=== PATIENT | female | born 1930 | race Caucasian/White ===

== ENCOUNTER 2016-04-19 09:40 | Outpatient (CLI) | payer MEDICARE ==
[2016-04-19 10:16] LABS: Anion Gap 13 mmol/L (10-20); BUN (Urea Nitrogen) 12 mg/dL (9.8-20.1); Calc. Creatinine Clearance 0 mL/min (70-130); Calcium 8.8 mg/dL (7.8-10.44); Carbon Dioxide 33 mmol/L (23-31); Chloride 99 mmol/L (98-107); Estimated GFR-MDRD 73
== END 2016-04-19 09:41 | disposition home or self-care (01) ==
LOC: BURLAB 09:40
PROVIDERS: ATTEND Nurse Practitioner Family
DX: I50.22 Chronic systolic (congestive) heart failure (principal)
CPT/HCPCS: 36415; 80048

== ENCOUNTER 2016-04-21 10:52 | Emergency (ER) | payer MEDICARE ==
[2016-04-21] MEDS ORDERED: cefTRIAXone\\ROCEPHIN 1 GM VIAL ONE (11:19)
[2016-04-21] MEDS ORDERED: Albuterol Sulfate 2.5 mg/3 ml Neb ONE (11:20)
[2016-04-21] MEDS ORDERED: methylPREDNISolone Sod Succ/PF 125 MG/2 ML VIAL ONE ×2 (11:20→11:28)
[2016-04-21] MEDS ORDERED: Magnesium Sulfate 2 GM/100 ML BAG ONE (11:20)
[2016-04-21 11:31] LABS: #Lymphocytes 0.8 thou/uL (1.20-3.40); #Monocytes 0.7 thou/uL (0.11-0.59); #Neutrophils 4.9 thou/uL (1.40-6.50); %Basophils 0.8 % (0.0-1.0); %Eosinophils 0.2 % (0.0-10.0); Hematocrit 39.6 % (36.0-47.0); Mean Platelet Volume 8.9 fL (7.4-10.4); Red Blood Cell (RBC) Count 5.46 mill/uL (4.20-5.40); White Blood Cell (WBC) Count 6.5 thou/uL (4.8-10.8)
[2016-04-21 11:42] LABS: ALT (SGPT) 15 U/L (0-55); AST (SGOT) 21 U/L (5-34); Alkaline Phosphatase 69 U/L (40-150); Anion Gap 17 mmol/L (10-20); BUN (Urea Nitrogen) 19 mg/dL (9.8-20.1); Bilirubin, Total 1.7 mg/dL (0.2-1.2); Calc. Creatinine Clearance 0 mL/min (70-130); Carbon Dioxide 31 mmol/L (23-31); Chloride 96 mmol/L (98-107); Estimated GFR-MDRD 63; Globulin 2.2 g/dL (2.4-3.5)
[2016-04-21 11:46] LABS: Acanthocytes SLIGHT = 1-5 cells (100X) (None Seen); Elliptocytes SLIGHT = 2-5 cells (100X) (0-1/hpf); Hypochromia SLIGHT = 6-15 cells (100X) (0-5/hpf); Microcytosis SLIGHT = 6-15 cells (100X) (0-5/hpf); Polychromasia SLIGHT = 2-3 cells (100X) (0-2/hpf)
[2016-04-21 11:48] LABS: Troponin I 0.033 ng/mL (< 0.028)
[2016-04-21] MEDS ORDERED: Sodium Chloride 0.9% 100 ML ONE (11:50)
[2016-04-21] MEDS ORDERED: Furosemide 40 MG/4 ML VIAL ONE (12:01)
--- NOTE | 2016-04-21 22:52 | RAD ---
PORTABLE CHEST: Date: 04-21-16 An AP portable film at 1114 is compared with a 08-01-14 study. FINDINGS: The left hemidiaphragm is chronically elevated and causes some compressive atelectasis of the left l ower lobe. The heart is moderately enlarged. Today, the vasculature seems more congested than it w as before. CHF is presumed. No large effusions are present, though small ones would be easily mi ssed. IMPRESSION: 1. Cardiomegaly and vascular congestion and element of congestive heart failure is thought to be pr esent. 2. Elevated left hemidiaphragm, a chronic finding. It is actually not as elevated as it was in 201 5. Code T POS: HOME
== END 2016-04-21 13:48 | disposition short-term general hospital (02) ==
LOC: BURERS 10:52
DX: I50.9 Heart failure, unspecified (principal); J44.9 Chronic obstructive pulmonary disease, unspecified; Z79.82 Long term (current) use of aspirin; Z79.899 Other long term (current) drug therapy; I11.0 Hypertensive heart disease with heart failure
CPT/HCPCS: 36415; 71010; 80053; 82553; 83880; 84484; 85025; 87040; 93005; 94640; 94760; 96361; 96365; 96367; 96375; J0696; J1940; J2930; J3475; J7050; J7611; J7620

== ENCOUNTER 2017-07-29 15:40 | Outpatient (CLI) | payer MEDICARE ==
--- NOTE | 2017-07-29 19:53 | RAD ---
LUMBAR SPINE 07/29/17 The bones are quite osteoporotic which degrades bony detail. The L5-S1 disc space is partially calcif ied. There is mild spondylolisthesis of L3 on L4 that appears to be due to facet arthritis. Some slig ht compression of T10 and T11 vertebral bodies are present. Some degree of compression is present at T6 through T9 as well, though these areas are not seen optimally. No prominent lumbar compressions ar e seen. The SI joints are difficult to evaluate. On the lateral view, there is a crescentic density anterior to the lumbar spine. This may just be a t ortuous aorta, but I cannot exclude the possibility of an aortic aneurysm. There was apparently none on a 2014 CT scan. However, I would recommend either doing a CT scan or ultrasound of this area to en sure there is no aneurysm. IMPRESSION: 1. Moderately severe osteoporosis. 2. Mild spondylolisthesis of L3 on L4. 3. Slight compressions of T6 through T11. 4. Crescentic calcification in front of the lower lumbar spine. Could be either a tortuous aorta or an aneurysm. Elective ultrasound or CT needed. POS: HOME
== END 2017-07-29 15:41 | disposition home or self-care (01) ==
LOC: BURRAD 15:40
PROVIDERS: ATTEND Family Medicine
DX: M43.16 Spondylolisthesis, lumbar region (principal); M81.0 Age-related osteoporosis without current pathological fracture; G95.20 Unspecified cord compression
CPT/HCPCS: 72100

== ENCOUNTER 2017-08-06 08:20 | Outpatient (CLI) | payer MEDICARE ==
--- NOTE | 2017-08-06 17:25 | ULT ---
ABDOMINAL AORTA ULTRASOUND: 08/06/17 Ultrasonography of the aorta was performed. The size of the aorta is normal throughout with no sign o f aneurysm. The maximal transverse diameter was 2.2 cm proximally, 1.9 cm in its mid portion, and 2.1 cm distally. The area around the bifurcation showed no aneurysm either. IMPRESSION: No acute findings or signs of aneurysm. POS: HOME
== END 2017-08-06 08:21 | disposition home or self-care (01) ==
LOC: BURULT 08:20
PROVIDERS: ATTEND Family Medicine
DX: I70.0 Atherosclerosis of aorta (principal)
CPT/HCPCS: 76775

== ENCOUNTER 2017-10-02 11:03 | Inpatient (IN) | payer MEDICARE ==
[2017-10-02] MEDS ORDERED: Milk Of Magnesia 30 ML UDCUP PO PRN (16:51)
[2017-10-02] MEDS ORDERED: Acetaminophen 500 MG TAB PO PRN (16:51)
[2017-10-02] MEDS ORDERED: Ondansetron ODT 4 MG TAB PO PRN (16:51)
[2017-10-02] MEDS: HYDROcodone/Acetaminophen 5/325 mg Tablet PO PRN (18:31)
[2017-10-02] MEDS: Famotidine 20 MG TAB PO SCH (21:09)
[2017-10-02] MEDS: Aspirin 81 mg Enteric Coated Tablet PO SCH (21:10)
[2017-10-03] MEDS: Aspirin 81 mg Enteric Coated Tablet PO SCH ×2 (09:46→20:42)
[2017-10-03] MEDS: Enoxaparin Sodium 30 MG/0.3 ML SYRINGE SC SCH (09:46)
[2017-10-03] MEDS: Famotidine 20 MG TAB PO SCH ×2 (09:46→20:41)
[2017-10-03] MEDS: Furosemide 40 MG TAB PO SCH (09:47)
[2017-10-03] MEDS: HYDROcodone/Acetaminophen 5/325 mg Tablet PO PRN (22:11)
[2017-10-04 05:31] LABS: Hemoglobin 9.2 g/dL (12.0-16.0); Platelet Count 180 thou/uL (130-400)
[2017-10-04] MEDS: Enoxaparin Sodium 30 MG/0.3 ML SYRINGE SC SCH (09:30)
[2017-10-04] MEDS: Famotidine 20 MG TAB PO SCH ×2 (09:30→20:51)
[2017-10-04] MEDS: Aspirin 81 mg Enteric Coated Tablet PO SCH ×2 (09:30→20:51)
[2017-10-04] MEDS: Furosemide 40 MG TAB PO SCH (09:30)
[2017-10-04] MEDS: Polyethylene Glycol 3350 17 GM Packet PO PRN (09:31)
[2017-10-04] MEDS: HYDROcodone/Acetaminophen 5/325 mg Tablet PO PRN (15:02)
[2017-10-05] MEDS: HYDROcodone/Acetaminophen 5/325 mg Tablet PO PRN ×2 (02:39→20:54)
[2017-10-05] MEDS: Aspirin 81 mg Enteric Coated Tablet PO SCH ×2 (08:20→20:54)
[2017-10-05] MEDS: Famotidine 20 MG TAB PO SCH ×2 (08:20→20:54)
[2017-10-05] MEDS: Furosemide 40 MG TAB PO SCH (08:20)
[2017-10-05] MEDS: Enoxaparin Sodium 30 MG/0.3 ML SYRINGE SC SCH (08:21)
[2017-10-05] MEDS ORDERED: Nitroglycerin 0.4 MG TAB (25 Tab Bottle) ONE (23:43)
[2017-10-06 05:47] LABS: Hemoglobin 9.1 g/dL (12.0-16.0); Platelet Count 210 thou/uL (130-400)
[2017-10-06] MEDS: Polyethylene Glycol 3350 17 GM Packet PO PRN (08:17)
[2017-10-06] MEDS: HYDROcodone/Acetaminophen 5/325 mg Tablet PO PRN ×2 (08:18→20:49)
[2017-10-06] MEDS: Furosemide 40 MG TAB PO SCH ×2 (08:18→20:40)
[2017-10-06] MEDS: Aspirin 81 mg Enteric Coated Tablet PO SCH ×2 (08:18→20:40)
[2017-10-06] MEDS: Enoxaparin Sodium 30 MG/0.3 ML SYRINGE SC SCH (08:18)
[2017-10-06] MEDS: Famotidine 20 MG TAB PO SCH ×2 (08:18→20:40)
[2017-10-06] MEDS: Mometasone/Formoterol 60 PUFF AER INH SCH (18:18)
[2017-10-07] MEDS: Mometasone/Formoterol 60 PUFF AER INH SCH ×2 (06:37→07:34)
[2017-10-07] MEDS: Famotidine 20 MG TAB PO SCH ×2 (08:30→20:52)
[2017-10-07] MEDS: Aspirin 81 mg Enteric Coated Tablet PO SCH ×2 (08:30→20:52)
[2017-10-07] MEDS: Furosemide 40 MG TAB PO SCH ×2 (08:30→20:52)
[2017-10-07] MEDS: HYDROcodone/Acetaminophen 5/325 mg Tablet PO PRN ×3 (08:30→20:52)
[2017-10-07] MEDS: Enoxaparin Sodium 30 MG/0.3 ML SYRINGE SC SCH (08:31)
[2017-10-07] MEDS: Polyethylene Glycol 3350 17 GM Packet PO PRN (08:36)
[2017-10-08 05:22] LABS: Hemoglobin 8.6 g/dL (12.0-16.0); Platelet Count 208 thou/uL (130-400)
[2017-10-08] MEDS: Mometasone/Formoterol 60 PUFF AER INH SCH ×2 (06:44→18:29)
[2017-10-08] MEDS: HYDROcodone/Acetaminophen 5/325 mg Tablet PO PRN ×2 (09:10→14:45)
[2017-10-08] MEDS: Famotidine 20 MG TAB PO SCH ×2 (09:11→20:58)
[2017-10-08] MEDS: Enoxaparin Sodium 30 MG/0.3 ML SYRINGE SC SCH (09:12)
[2017-10-08] MEDS: Aspirin 81 mg Enteric Coated Tablet PO SCH ×2 (09:12→20:58)
[2017-10-08] MEDS: Furosemide 40 MG TAB PO SCH ×2 (09:12→13:40)
[2017-10-08] MEDS: Polyethylene Glycol 3350 17 GM Packet PO SCH (09:13)
[2017-10-09] MEDS: Furosemide 40 MG TAB PO SCH ×2 (06:31→14:20)
[2017-10-09] MEDS: Mometasone/Formoterol 60 PUFF AER INH SCH ×2 (06:31→18:32)
[2017-10-09] MEDS: HYDROcodone/Acetaminophen 5/325 mg Tablet PO PRN ×2 (09:11→14:19)
[2017-10-09] MEDS: Famotidine 20 MG TAB PO SCH ×2 (09:13→21:32)
[2017-10-09] MEDS: Enoxaparin Sodium 30 MG/0.3 ML SYRINGE SC SCH (09:13)
[2017-10-09] MEDS: Aspirin 81 mg Enteric Coated Tablet PO SCH ×2 (09:13→21:32)
[2017-10-09] MEDS: Polyethylene Glycol 3350 17 GM Packet PO SCH (09:14)
[2017-10-10] MEDS: HYDROcodone/Acetaminophen 5/325 mg Tablet PO PRN ×3 (01:23→14:25)
[2017-10-10 05:13] LABS: Hemoglobin 8.4 g/dL (12.0-16.0); Platelet Count 214 thou/uL (130-400)
[2017-10-10] MEDS: Mometasone/Formoterol 60 PUFF AER INH SCH ×2 (06:07→17:23)
[2017-10-10] MEDS: Furosemide 40 MG TAB PO SCH ×2 (06:07→14:23)
[2017-10-10] MEDS: Polyethylene Glycol 3350 17 GM Packet PO SCH (09:26)
[2017-10-10] MEDS: Famotidine 20 MG TAB PO SCH ×2 (09:27→21:47)
[2017-10-10] MEDS: Aspirin 81 mg Enteric Coated Tablet PO SCH ×2 (09:27→21:47)
[2017-10-10] MEDS: Enoxaparin Sodium 30 MG/0.3 ML SYRINGE SC SCH (09:27)
[2017-10-11] MEDS: Furosemide 40 MG TAB PO SCH ×2 (05:50→14:26)
[2017-10-11] MEDS: Mometasone/Formoterol 60 PUFF AER INH SCH ×2 (05:50→18:21)
[2017-10-11] MEDS: Famotidine 20 MG TAB PO SCH ×2 (09:54→20:16)
[2017-10-11] MEDS: Enoxaparin Sodium 30 MG/0.3 ML SYRINGE SC SCH (09:55)
[2017-10-11] MEDS: Aspirin 81 mg Enteric Coated Tablet PO SCH ×2 (09:55→20:16)
[2017-10-11] MEDS: Polyethylene Glycol 3350 17 GM Packet PO SCH (10:01)
[2017-10-11] MEDS: HYDROcodone/Acetaminophen 5/325 mg Tablet PO PRN ×2 (10:41→20:16)
[2017-10-12] MEDS: HYDROcodone/Acetaminophen 5/325 mg Tablet PO PRN (04:05)
[2017-10-12 04:51] LABS: Hemoglobin 8.5 g/dL (12.0-16.0); Platelet Count 241 thou/uL (130-400)
[2017-10-12] MEDS: Furosemide 40 MG TAB PO SCH ×2 (06:02→14:00)
[2017-10-12] MEDS: Mometasone/Formoterol 60 PUFF AER INH SCH ×2 (06:02→20:59)
[2017-10-12] MEDS: Enoxaparin Sodium 30 MG/0.3 ML SYRINGE SC SCH (09:41)
[2017-10-12] MEDS: Famotidine 20 MG TAB PO SCH ×2 (09:41→21:01)
[2017-10-12] MEDS: Aspirin 81 mg Enteric Coated Tablet PO SCH ×2 (09:41→21:01)
[2017-10-12] MEDS: Polyethylene Glycol 3350 17 GM Packet PO SCH (09:41)
[2017-10-13] MEDS: HYDROcodone/Acetaminophen 5/325 mg Tablet PO PRN ×3 (02:49→14:51)
[2017-10-13] MEDS: Mometasone/Formoterol 60 PUFF AER INH SCH ×2 (05:37→20:19)
[2017-10-13] MEDS: Furosemide 40 MG TAB PO SCH ×2 (05:37→14:51)
[2017-10-13] MEDS: Enoxaparin Sodium 30 MG/0.3 ML SYRINGE SC SCH (09:03)
[2017-10-13] MEDS: Polyethylene Glycol 3350 17 GM Packet PO SCH (09:05)
[2017-10-13] MEDS: Famotidine 20 MG TAB PO SCH ×2 (09:06→20:17)
[2017-10-13] MEDS: Aspirin 81 mg Enteric Coated Tablet PO SCH ×2 (09:19→20:17)
[2017-10-14 05:16] LABS: Hemoglobin 8.2 g/dL (12.0-16.0); Platelet Count 191 thou/uL (130-400)
[2017-10-14] MEDS: Furosemide 40 MG TAB PO SCH ×2 (06:13→13:23)
[2017-10-14] MEDS: Mometasone/Formoterol 60 PUFF AER INH SCH ×2 (06:14→17:51)
[2017-10-14] MEDS: Famotidine 20 MG TAB PO SCH ×2 (08:06→20:10)
[2017-10-14] MEDS: Aspirin 81 mg Enteric Coated Tablet PO SCH ×2 (08:06→20:11)
[2017-10-14] MEDS: Polyethylene Glycol 3350 17 GM Packet PO SCH (08:06)
[2017-10-14] MEDS: Enoxaparin Sodium 30 MG/0.3 ML SYRINGE SC SCH (08:09)
[2017-10-14] MEDS: HYDROcodone/Acetaminophen 5/325 mg Tablet PO PRN ×3 (09:05→20:11)
[2017-10-15] MEDS: Furosemide 40 MG TAB PO SCH ×2 (05:46→13:59)
[2017-10-15] MEDS: Mometasone/Formoterol 60 PUFF AER INH SCH ×2 (05:46→18:38)
[2017-10-15] MEDS ORDERED: Cyanocobalamin 1000 MCG/ML VIAL SC SCH (09:00)
[2017-10-15] MEDS: Famotidine 20 MG TAB PO SCH ×2 (09:06→20:33)
[2017-10-15] MEDS: Aspirin 81 mg Enteric Coated Tablet PO SCH ×2 (09:07→20:32)
[2017-10-15] MEDS: HYDROcodone/Acetaminophen 5/325 mg Tablet PO PRN (09:09)
[2017-10-15] MEDS: Polyethylene Glycol 3350 17 GM Packet PO SCH (09:12)
[2017-10-15] MEDS: Enoxaparin Sodium 30 MG/0.3 ML SYRINGE SC SCH (09:19)
[2017-10-16 05:35] LABS: Platelet Count 219 thou/uL (130-400)
[2017-10-16 05:45] LABS: Calc. Creatinine Clearance 114 mL/min (70-130); Estimated GFR-MDRD Greater than 90
[2017-10-16] MEDS: Mometasone/Formoterol 60 PUFF AER INH SCH ×2 (06:12→18:50)
[2017-10-16] MEDS: Furosemide 40 MG TAB PO SCH ×2 (06:12→13:54)
[2017-10-16] MEDS: Aspirin 81 mg Enteric Coated Tablet PO SCH ×2 (08:46→20:57)
[2017-10-16] MEDS: Enoxaparin Sodium 30 MG/0.3 ML SYRINGE SC SCH (08:46)
[2017-10-16] MEDS: Polyethylene Glycol 3350 17 GM Packet PO SCH (08:47)
[2017-10-16] MEDS: Famotidine 20 MG TAB PO SCH ×2 (08:47→20:57)
[2017-10-17] MEDS: Mometasone/Formoterol 60 PUFF AER INH SCH ×2 (06:18→17:08)
[2017-10-17] MEDS: Furosemide 40 MG TAB PO SCH ×2 (06:18→14:29)
[2017-10-17] MEDS: Enoxaparin Sodium 30 MG/0.3 ML SYRINGE SC SCH (08:27)
[2017-10-17] MEDS: Famotidine 20 MG TAB PO SCH ×2 (08:28→20:39)
[2017-10-17] MEDS: Aspirin 81 mg Enteric Coated Tablet PO SCH ×2 (08:28→20:39)
[2017-10-17] MEDS: HYDROcodone/Acetaminophen 5/325 mg Tablet PO PRN (08:29)
[2017-10-17] MEDS: Polyethylene Glycol 3350 17 GM Packet PO SCH (08:31)
[2017-10-18] MEDS: HYDROcodone/Acetaminophen 5/325 mg Tablet PO PRN (01:41)
[2017-10-18 05:39] LABS: Platelet Count 205 thou/uL (130-400)
[2017-10-18 05:48] LABS: Calc. Creatinine Clearance 116 mL/min (70-130); Estimated GFR-MDRD Greater than 90
[2017-10-18] MEDS: Mometasone/Formoterol 60 PUFF AER INH SCH ×2 (06:39→18:45)
[2017-10-18] MEDS: Furosemide 40 MG TAB PO SCH ×2 (06:39→14:00)
[2017-10-18] MEDS: Enoxaparin Sodium 30 MG/0.3 ML SYRINGE SC SCH (08:36)
[2017-10-18] MEDS: Aspirin 81 mg Enteric Coated Tablet PO SCH ×2 (08:36→21:04)
[2017-10-18] MEDS: Famotidine 20 MG TAB PO SCH ×2 (08:36→21:04)
[2017-10-18] MEDS: Polyethylene Glycol 3350 17 GM Packet PO SCH (08:37)
[2017-10-19] MEDS: HYDROcodone/Acetaminophen 5/325 mg Tablet PO PRN (03:08)
[2017-10-19] MEDS: Furosemide 40 MG TAB PO SCH ×2 (06:21→14:47)
[2017-10-19] MEDS: Mometasone/Formoterol 60 PUFF AER INH SCH ×2 (06:21→18:28)
[2017-10-19] MEDS: Famotidine 20 MG TAB PO SCH ×2 (09:09→20:56)
[2017-10-19] MEDS: Aspirin 81 mg Enteric Coated Tablet PO SCH ×2 (09:09→20:56)
[2017-10-19] MEDS: Enoxaparin Sodium 30 MG/0.3 ML SYRINGE SC SCH (09:10)
[2017-10-19] MEDS: Polyethylene Glycol 3350 17 GM Packet PO SCH (09:15)
[2017-10-20 05:30] LABS: Hemoglobin 8.6 g/dL (12.0-16.0); Platelet Count 214 thou/uL (130-400)
[2017-10-20] MEDS: Furosemide 40 MG TAB PO SCH ×2 (05:35→14:12)
[2017-10-20] MEDS: Mometasone/Formoterol 60 PUFF AER INH SCH ×2 (05:36→18:21)
[2017-10-20 05:37] LABS: Calc. Creatinine Clearance 116 mL/min (70-130); Estimated GFR-MDRD Greater than 90
[2017-10-20] MEDS: Polyethylene Glycol 3350 17 GM Packet PO SCH (09:17)
[2017-10-20] MEDS: Aspirin 81 mg Enteric Coated Tablet PO SCH ×2 (09:18→21:01)
[2017-10-20] MEDS: Famotidine 20 MG TAB PO SCH ×2 (09:18→21:01)
[2017-10-20] MEDS: Enoxaparin Sodium 30 MG/0.3 ML SYRINGE SC SCH (09:19)
[2017-10-20] MEDS: HYDROcodone/Acetaminophen 5/325 mg Tablet PO PRN ×2 (13:14→17:28)
[2017-10-21] MEDS: HYDROcodone/Acetaminophen 5/325 mg Tablet PO PRN ×2 (00:38→08:29)
[2017-10-21] MEDS: Mometasone/Formoterol 60 PUFF AER INH SCH ×2 (06:26→18:25)
[2017-10-21] MEDS: Furosemide 40 MG TAB PO SCH ×2 (06:30→14:49)
[2017-10-21] MEDS: Famotidine 20 MG TAB PO SCH ×2 (08:30→20:21)
[2017-10-21] MEDS: Aspirin 81 mg Enteric Coated Tablet PO SCH ×2 (08:30→20:22)
[2017-10-21] MEDS: Polyethylene Glycol 3350 17 GM Packet PO SCH (08:32)
[2017-10-21] MEDS: Enoxaparin Sodium 40 MG/0.4 ML SYRINGE SC SCH (08:40)
[2017-10-22] MEDS: HYDROcodone/Acetaminophen 5/325 mg Tablet PO PRN ×2 (02:26→14:06)
[2017-10-22 05:25] LABS: Hemoglobin 8.5 g/dL (12.0-16.0); Platelet Count 212 thou/uL (130-400)
[2017-10-22 05:33] LABS: Calc. Creatinine Clearance 115 mL/min (70-130); Estimated GFR-MDRD Greater than 90
[2017-10-22] MEDS: Mometasone/Formoterol 60 PUFF AER INH SCH ×2 (06:27→18:21)
[2017-10-22] MEDS: Furosemide 40 MG TAB PO SCH ×2 (06:27→13:33)
[2017-10-22 06:41] VITALS: BMI 36.7
[2017-10-22] MEDS: Enoxaparin Sodium 40 MG/0.4 ML SYRINGE SC SCH (09:58)
[2017-10-22] MEDS: Aspirin 81 mg Enteric Coated Tablet PO SCH ×2 (09:58→20:41)
[2017-10-22] MEDS: Famotidine 20 MG TAB PO SCH ×2 (09:58→20:40)
[2017-10-22] MEDS: Polyethylene Glycol 3350 17 GM Packet PO SCH (09:59)
--- NOTE | 2017-10-22 22:13 | ULT ---
RIGHT LOWER EXTREMITY VENOUS ULTRASOUND: 10/22/17 Ultrasonography of the deep veins of the right lower extremity was performed using color doppler imag ing. Documentary images and worksheets were provided and reviewed. All deep veins were freely stella sible from groin to ankle. No echogenic clot was seen in the vessels. There was normal doppler respon se to augmentation maneuvers. Thus, there is no evidence of DVT. There is a complex cystic area in the popliteal fossa measuring about 1.8 x 1.2 x 1.5 cm. It is mostl y cystic but has debris internally. 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 IMPRESSION: 1. No evidence of DVT. 2. 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 POS: HOME
[2017-10-23] MEDS: Furosemide 40 MG TAB PO SCH ×2 (05:58→13:59)
[2017-10-23] MEDS: Mometasone/Formoterol 60 PUFF AER INH SCH ×2 (05:59→18:44)
[2017-10-23] MEDS: HYDROcodone/Acetaminophen 5/325 mg Tablet PO PRN (08:54)
[2017-10-23] MEDS: Enoxaparin Sodium 40 MG/0.4 ML SYRINGE SC SCH (08:55)
[2017-10-23] MEDS: Famotidine 20 MG TAB PO SCH ×2 (08:56→19:55)
[2017-10-23] MEDS: Aspirin 81 mg Enteric Coated Tablet PO SCH ×2 (08:56→19:55)
[2017-10-23] MEDS: Polyethylene Glycol 3350 17 GM Packet PO SCH (08:57)
[2017-10-24 05:24] LABS: Hemoglobin 8.5 g/dL (12.0-16.0); Platelet Count 197 thou/uL (130-400)
[2017-10-24 05:34] LABS: Calc. Creatinine Clearance 115 mL/min (70-130); Estimated GFR-MDRD Greater than 90
[2017-10-24] MEDS: Mometasone/Formoterol 60 PUFF AER INH SCH (05:55)
[2017-10-24] MEDS: Furosemide 40 MG TAB PO SCH (05:55)
[2017-10-24 06:25] VITALS: BP 139/62; TEMP 98
[2017-10-24] MEDS: Aspirin 81 mg Enteric Coated Tablet PO SCH (09:21)
[2017-10-24] MEDS: Enoxaparin Sodium 40 MG/0.4 ML SYRINGE SC SCH (09:21)
[2017-10-24] MEDS: Famotidine 20 MG TAB PO SCH (09:21)
[2017-10-24] MEDS: Polyethylene Glycol 3350 17 GM Packet PO SCH (09:22)
[2017-10-24] MEDS: HYDROcodone/Acetaminophen 5/325 mg Tablet PO PRN (09:23)
--- NOTE | 2017-10-24 12:52 | DIS ---
DATE OF ADMISSION: 10/02/2017 DATE OF DISCHARGE: 10/24/2017 ADMISSION DIAGNOSES: 1. Status post right intertrochanteric hip fracture. 2. Hypertension. 3. Chronic lower extremity edema. 4. Chronic obstructive pulmonary disease. 5. Obstructive sleep apnea on CPAP. PROCEDURES: Venous Doppler of the right lower extremity was negative for DVT. HOSPITAL COURSE: An 86-year-old female who presented as a skilled patient to participate with physical therapy and occupational therapy, status post admission at [facility] in [place] where she was treated status post fall for a right intertrochanteric hip fracture. On 2017 she had a right IM nailing with a long TFNA via Dr. Decker performed. The patient has a history of significant osteoarthritis of bilateral knees, and this accompanied with physical deconditioning required her transition to our facility for further therapy. She typically lives at home with her and is ambulatory with the assistance of a walker. The patient presented with notable swelling to the lower extremities, right greater than left, although she does have a history of edema to her lower extremities. Her surgical wound sites were weeping serosanguineous fluid which required frequent dressing changes. Accordingly, her Lasix was increased from 20 mg p.o. daily to 40 mg p.o. daily. During her admission the patient was ruled out for DVT of the right lower extremity secondary to her lower extremity swelling. Gradually her drainage from surgical sites improved and dissipated. She had follow up with Dr. Decker on 10/20/2017 with no further changes and advised further follow up 3 months from that time period. She has progressed steadily, but slowly with PT/OT to achieve the goals set forth to enable her to return to her home setting. She has elected to proceed with further physical therapy via [facility]. At this time, the patient is in her usual state of health and amenable to return home with further care via home health as stated. DISPOSITION: The patient will discharge home where she lives with her . She may follow up with myself in the clinic next week and receive further physical therapy, occupational therapy via [facility]. DISCHARGE MEDICATIONS: Aspirin 81 mg p.o. b.i.d., cyanocobalamin 1000 mcg subcutaneous q. 14 days, Lasix 20 mg p.o. daily, DuoNeb q.6 hours p.r.n., Tylenol 500 mg p.o. q.6 hours p.r.n. MTDD
== END 2017-10-24 11:57 | disposition home or self-care (01) | DRG 561 ==
LOC: BURMED 13:41
PROVIDERS: ADMIT Family Medicine; ATTEND Family Medicine
DX: S72.141D Displaced intertrochanteric fracture of right femur, subsequent encounter for closed fracture with routine healing (principal); I10 Essential (primary) hypertension; R60.0 Localized edema; J44.9 Chronic obstructive pulmonary disease, unspecified; G47.33 Obstructive sleep apnea (adult) (pediatric); M17.0 Bilateral primary osteoarthritis of knee
CPT/HCPCS: 36415; 82565; 85014; 85018; 85049; 94664; G8987-GO-CL; G8988-GO-CI; J1650; J3420

== ENCOUNTER 2018-02-10 09:35 | Inpatient (IN) | payer MEDICARE ==
[2018-02-10 10:53] LABS: Clarity Slightly Cloudy (Clear); Leukocyte Negative (Negative); Specific Gravity, Urine 1.015 (1.005-1.030); pH, Urine 5.5 (5.0-9.0)
[2018-02-10 10:54] LABS: Bilirubin Small (Negative); Blood, Urine Trace (Negative); Glucose, Urine (Dipstick) Negative (Negative); Nitrite Negative (Negative); Protein, Urine (Dipstick) Trace mg/dL (Neg-Trace)
[2018-02-10 10:55] LABS: Bacteria/HPF 1+ HPF (None Seen); RBC/HPF 0-3 HPF (0-3); Squamous Epithelial 0-3 HPF (0-3); WBC/HPF 0-3 HPF (0-3)
[2018-02-10 11:02] LABS: ALT (SGPT) 13 U/L (8-55); AST (SGOT) 19 U/L (5-34); Albumin 3.8 g/dL (3.4-4.8); Alkaline Phosphatase 91 U/L (40-150); Anion Gap 16 mmol/L (10-20); BUN (Urea Nitrogen) 13 mg/dL (9.8-20.1); Bilirubin, Total 2.3 mg/dL (0.2-1.2); Calc. Creatinine Clearance 94 mL/min (70-130); Calcium 9.4 mg/dL (7.8-10.44); Carbon Dioxide 29 mmol/L (23-31); Chloride 97 mmol/L (98-107); Estimated GFR-MDRD 84; Globulin 2.3 g/dL (2.4-3.5); Glucose 107 mg/dL (83-110); Potassium 3.8 mmol/L (3.5-5.1); Protein, Total 6.1 g/dL (6.0-8.3); Sodium 138 mmol/L (136-145)
[2018-02-10 11:43] LABS: #Basophils 0.1 thou/uL (0.0-0.2); #Monocytes 0.9 thou/uL (0.11-0.59); #Neutrophils 9.6 thou/uL (1.40-6.50); %Basophils 0.6 % (0.0-1.0); %Eosinophils 0.2 % (0.0-10.0); %Lymphocytes 8.6 % (21.0-51.0); %Monocytes 8.1 % (0.0-10.0); %Neutrophils 82.5 % (42.0-75.0); Hemoglobin 10.1 g/dL (12.0-16.0); Mean Corpuscular HGB CONC 31.6 g/dL (32.0-36.0); Mean Corpuscular Hemoglobin 21.7 pg (27.0-31.0); Mean Corpuscular Volume 68.5 fL (78.0-98.0); Mean Platelet Volume 8.3 fL (7.4-10.4); Platelet Count 197 thou/uL (130-400); RBC Distribution Width 18.6 % (11.5-14.5); Red Blood Cell (RBC) Count 4.68 mill/uL (4.20-5.40); White Blood Cell (WBC) Count 11.6 thou/uL (4.8-10.8)
[2018-02-10 11:54] LABS: Anisocytosis SLIGHT = 6-15 cells (100X) (0-5/hpf); MDiff Complete? YES; Microcytosis SLIGHT = 6-15 cells (100X) (0-5/hpf); PLT Morphology Comment Appears Adequate
[2018-02-10] MEDS ORDERED: Acetaminophen/Codeine 30-300mg Tablet PO PRN (13:07)
[2018-02-10] MEDS ORDERED: Cyanocobalamin 1000 MCG/ML VIAL SC SCH (13:15)
--- NOTE | 2018-02-10 13:59 | RAD ---
CHEST TWO VIEWS: 02/10/2018 COMPARISON: 09/28/2017 I also reviewed an older chest x-ray from 04/24/[address] angio chest from 04/23/2016. FINDINGS: Moderate cardiomegaly and elevation of the left hemidiaphragm are chronic and similar to before. If anything, the left lung is slightly better aerated today than it was in August. There is a new 1 cm no dular density in the left upper lobe that is not visible on the prior chest x-ray, nor on the 2017 CT . This bears further followup, probably with an elective CT. There is a streaky infiltrate in the r ight base that is new since August. The vessels do not show any dramatic congestion, nor is there pulm onary edema. No large effusions are seen. IMPRESSION: 1. Streaky right basilar infiltrate. 2. A 1 cm nodular density, left upper lobe, a new finding. 3. Moderate cardiomegaly, stable. No clear signs of congestive heart failure. 4. Chronic elevation of the left hemidiaphragm. POS: HOME
[2018-02-10] MEDS ORDERED: cefTRIAXone\\ROCEPHIN 1 GM in Sodium Chloride 0.9% 100 ML IVPB SCH (15:00)
[2018-02-10] MEDS ORDERED: Furosemide 20 MG TAB PO SCH (16:00)
[2018-02-10] MEDS ORDERED: Aspirin 81 mg Enteric Coated Tablet PO SCH (16:00)
[2018-02-10] MEDS: Acetaminophen 500 MG TAB PO PRN (17:17)
[2018-02-10] MEDS: Azithromycin 500 MG in Sodium Chloride 0.9% 250 ML 250 ML IVPB SCH (17:52)
[2018-02-10] MEDS ORDERED: Sodium Chloride 0.9% 10 ML ONE (19:09)
[2018-02-10] MEDS: Aspirin 81 mg Enteric Coated Tablet PO SCH (20:14)
--- NOTE | 2018-02-11 00:58 | HP ---
CHIEF COMPLAINT: Dyspnea with hypoxia. HISTORY OF PRESENT ILLNESS: 87-year-old female presented to the clinical setting this morning with complaints of progressively worsening cough, which has been intermittently productive of yellow phlegm, more problematic at night and accompanied by shortness of breath. She developed fever and chills 1 to 2 days ago. She did get a flu shot in December of this year. At home, she had taken Tylenol prior to her presentation in the clinic. In the clinic, she was noted to be febrile with a temperature of 100 degrees and mildly tachypneic and hypoxic with a pulse ox of 88%. She was provided a DuoNeb treatment with only mild improvement at best with oxygen rising in between 89% and 90%. Flu swab was obtained and was negative. The patient is followed by Pulmonology, Dr. Barlow, as she has a history of restrictive and obstructive lung disease, although no h/o smoking. Due to the patient's history, clinical presentation and lack of improvement in the clinical setting, she was directly admitted to [facility] for suspected community-acquired pneumonia, dyspnea and hypoxia with the need for further workup and treatment. Upon admission to the floor, chest x-ray was obtained along with blood work and cultures. Her chest x-ray reveals streaky right basilar infiltrates along with a 1 cm nodular density to the left upper lobe, which is a new finding, moderate cardiomegaly which is stable with no clear signs of congestive heart failure and chronic elevation to the left hemidiaphragm. Her lab work revealed a leukocytosis with left shift. She was started on IV Rocephin empirically after her labs were obtained and has been provided supplemental oxygen. Upon reevaluation after clinic, the patient is resting comfortably and felt to be breathing slightly better. Reports her intake and output are at baseline. She is in no respiratory distress. She has good insight into her reason for admission. I had discussion with the patient and her daughter by phone as well in regard to the chest x-ray finding of a new pulmonary nodule and they are both in agreement with pursuance of the CT scan. PAST MEDICAL HISTORY: Diastolic congestive heart failure. Most recent echocardiogram done on 04/22/2016 shows normal left ejection fraction of 65% to 70%, left ventricle was hyperdynamic, right atrial enlargement, right ventricle was mildly dilated, mild tricuspid regurgitation, mild mitral regurgitation, pulmonary hypertension with estimated PA systolic pressure of 65 mmHg. Restrictive and obstructive lung disease, hypertension, osteoarthritis, vitamin B12 deficiency. PAST SURGICAL HISTORY: Cholecystectomy, appendectomy, hysterectomy, right hip surgery. SOCIAL HISTORY: The patient is a nonsmoker with no ETOH or illicit drug use. ALLERGIES: INCLUDE CIPRO AND FELDENE. FAMILY HISTORY: Noncontributory. CURRENT MEDICATIONS: Include: 1. Tylenol with Codeine q.8 hours p.r.n. 2. Aspirin 81 mg p.o. daily. 3. Cyanocobalamin 1000 mcg subcutaneously twice a month. 4. Furosemide 40 mg p.o. daily. 5. Supplemental oxygen at night. REVIEW OF SYSTEMS: GENERAL: The patient reports fever and chills. EAR, NOSE AND THROAT: Denies sore throat. She has had nasal drainage and congestion. CARDIOVASCULAR: Denies chest pain or palpitations. RESPIRATORY: Complains of shortness of breath and cough. GASTROINTESTINAL: Denies abdominal pain, nausea, vomiting, diarrhea, or constipation. GENITOURINARY: Denies dysuria. MUSCULOSKELETAL: Complains of chronic joint pain. DERMATOLOGY: Denies rash. NEUROLOGIC: Denies headache. LABORATORY DATA: Urinalysis shows trace blood with 1+ bacteria; negative for ketones, glucose, nitrites, or leukocyte esterase. White blood cell count is 11.6 with a left shift, H and H are 10.1 and 32.1, platelets are 197. Sodium is 138, potassium 3.8, BUN is 13, creatinine 0.67 with a GFR of 84, glucose 107. AST and ALT are within normal limits. BNP is 416. Chest x-ray 02/10/2018; as per HPI, streaky right basilar infiltrate, 1 cm nodular density to the left upper lobe which is a new finding. Moderate cardiomegaly, stable with no clear signs of congestive heart failure. Chronic elevation of the left hemidiaphragm. PHYSICAL EXAMINATION: VITAL SIGNS: Temperature is 100.7, pulse is 92, respiratory rate is 24, oxygen is 93% on 2 L, blood pressure is 133/60. GENERAL: The patient is alert and oriented, in on acute distress. EYES: Pupils are equal, round and reactive. Sclerae clear. Extraocular muscles are intact bilaterally. She does wear glasses. NOSE: There is nasal congestion. THROAT: Moist mucous membranes. No erythema. NECK: Supple with no lymphadenopathy. No meningeal signs. CARDIOVASCULAR: Regular rate and rhythm. Normal S1 and S2. RESPIRATORY: Mild tachypnea with scattered wheezes. No respiratory distress. ABDOMEN: Soft, nontender. No rebound or guarding. EXTREMITIES: She has chronic nonpitting edema. No clubbing or cyanosis. SKIN: She has a herpetic rash to the area between the upper lip and nose. NEUROLOGIC: Nonfocal. Cranial nerves 2 through 12 are grossly intact. ASSESSMENT AND PLAN: 1. Community-acquired pneumonia, right lower lobe. The patient has been started on Rocephin empirically; will add IV Azithromycin to this as well. Blood and urine culture are pending. We will be repeating her CBC in the morning. 2. Pulmonary nodule. This is a new finding per chest x-ray. The patient and daughter of the patient are in agreement with pursuance of a CT scan to further investigate this. This has been ordered for tomorrow morning. 3. Hypoxia. We will resume the patient on supplemental oxygen and keep O2 sats greater than 92%. The patient does have home oxygen for p.r.n. use and does wear this nightly. 4. Restrictive/obstructive lung disease. The patient is followed by Pulmonology , Dr. Barlow with her next scheduled appointment in March, next month. She has been provided with ab incentive spirometer and will have scheduled DuoNeb treatments. 5. Diastolic congestive heart failure. BNP is a little bit elevated; however, she appears to be euvolemic overall with no signs of volume overload per her chest x-ray as well. We will resume the patient's home Lasix dosing along with daily weights and a heart-healthy diet. 6. Hypertension. The patient is hemodynamically stable, will resume her usual blood pressure medications. 7. Osteoarthritis. Chronic issue for which the patient has Tylenol with Codeine for p.r.n. use. We will initiate physical therapy and occupational therapy secondary to this and her advanced age to help prevent development of physical deconditioning. 8. Prophylaxis. The patient has been started on famotidine for gastrointestinal prophylaxis and Lovenox for deep venous thrombosis prophylaxis. DISPOSITION: We will plan for the patient to be able to discharge home once her respiratory status returns to baseline, lab work returns to baseline along with completion of her cultures. Job ID: [id number] [facility]
[2018-02-11 06:20] LABS: #Lymphocytes 0.6 thou/uL (1.20-3.40); #Neutrophils 6.7 thou/uL (1.40-6.50); %Basophils 0.5 % (0.0-1.0); %Eosinophils 0.3 % (0.0-10.0); %Lymphocytes 7.2 % (21.0-51.0); %Monocytes 11.8 % (0.0-10.0); %Neutrophils 80.2 % (42.0-75.0); Anisocytosis SLIGHT = 6-15 cells (100X) (0-5/hpf); Elliptocytes SLIGHT = 2-5 cells (100X) (0-1/hpf); Hemoglobin 8.8 g/dL (12.0-16.0); Hypochromia SLIGHT = 6-15 cells (100X) (0-5/hpf); MDiff Complete? YES; Mean Corpuscular Hemoglobin 22.1 pg (27.0-31.0); Mean Platelet Volume 8.7 fL (7.4-10.4); Microcytosis SLIGHT = 6-15 cells (100X) (0-5/hpf); Platelet Count 151 thou/uL (130-400); Poikilocytosis SLIGHT = 6-15 cells (100X) (0-5/hpf); RBC Distribution Width 18.9 % (11.5-14.5); Red Blood Cell (RBC) Count 3.98 mill/uL (4.20-5.40); White Blood Cell (WBC) Count 8.3 thou/uL (4.8-10.8)
[2018-02-11 07:29] LABS: ALT (SGPT) 10 U/L (8-55); AST (SGOT) 11 U/L (5-34); Albumin 3.1 g/dL (3.4-4.8); Alkaline Phosphatase 70 U/L (40-150); Anion Gap 11 mmol/L (10-20); BUN (Urea Nitrogen) 13 mg/dL (9.8-20.1); Bilirubin, Total 1.1 mg/dL (0.2-1.2); Calc. Creatinine Clearance 86 mL/min (70-130); Calcium 8.6 mg/dL (7.8-10.44); Carbon Dioxide 32 mmol/L (23-31); Chloride 99 mmol/L (98-107); Estimated GFR-MDRD 76; Globulin 1.9 g/dL (2.4-3.5); Glucose 105 mg/dL (83-110); Potassium 3.7 mmol/L (3.5-5.1); Sodium 138 mmol/L (136-145)
[2018-02-11] MEDS: Ferrous Sulfate 325 MG TAB PO SCH (08:55)
[2018-02-11] MEDS: guaiFENesin ER 600 MG TAB PO SCH ×2 (08:56→21:00)
[2018-02-11] MEDS: Saccharomyces boulardii 250 MG CAP PO SCH (08:57)
[2018-02-11] MEDS: Furosemide 20 MG TAB PO SCH (08:57)
[2018-02-11] MEDS: Famotidine 20 MG TAB PO SCH (08:57)
[2018-02-11] MEDS: Enoxaparin Sodium 30 MG/0.3 ML SYRINGE SC SCH (08:59)
[2018-02-11] MEDS: Aspirin 81 mg Enteric Coated Tablet PO SCH ×2 (08:59→21:00)
--- NOTE | 2018-02-11 13:24 | CT ---
CT OF THE THORAX WITH CONTRAST: Date: 02-11-18 Comparison: 04-23-16 Axial slices were acquired followed by coronal and sagittal reconstructions. This was done in respons e to a recent abnormal chest radiograph which suggested a nodular density in the left upper lobe at t he level of the aortic arch. Today's exam fails to demonstrate an actual lung nodule here. I presume the finding is due to a super imposed shadow or small temporary infiltrate. I see no nodule at this level to be concerned about. However, there are new infiltrates in each lower lobe posteriorly, both the right lower lobe and left lower lobes. The findings suggest pneumonia. Some small pleural effusions are present. A small amoun t of pericardial effusion is seen. The heart is enlarged. Coronary artery calcifications are present. No mass was seen in the mediastinum. The right lobe of the thyroid gland has a 1 cm hypoechoic lesio n in it. I believe it can be seen on the prior study very faintly. Its significance is probably doubt ful given the patient's age and other problems. The patient has a chronically elevated left hemidiaphragm. Extensive degenerative changes are present in the spine. Scans through the upper abdomen showed a large right renal cyst but no other findings of concern in the imaged areas. IMPRESSION: 1. Bibasilar pneumonia. 2. No nodule demonstrated. 3. Small pericardial effusion. POS: [facility]
[2018-02-11] MEDS ORDERED: Sodium Chloride 0.9% 10 ML ONE (13:31)
[2018-02-11] MEDS: cefTRIAXone\\ROCEPHIN 1 GM in Sodium Chloride 0.9% 100 ML IVPB SCH (13:39)
[2018-02-11] MEDS: Azithromycin 500 MG in Sodium Chloride 0.9% 250 ML 250 ML IVPB SCH (17:41)
[2018-02-11] MEDS ORDERED: Zolpidem Tartrate 5 MG TAB PO PRN (19:53)
[2018-02-12 06:06] LABS: #Eosinphils 0.1 thou/uL (0.0-0.7); #Lymphocytes 1.1 thou/uL (1.20-3.40); #Monocytes 0.8 thou/uL (0.11-0.59); #Neutrophils 4.9 thou/uL (1.40-6.50); %Basophils 0.6 % (0.0-1.0); %Lymphocytes 15.6 % (21.0-51.0); %Monocytes 11.3 % (0.0-10.0); %Neutrophils 71.4 % (42.0-75.0); Anisocytosis SLIGHT = 6-15 cells (100X) (0-5/hpf); Elliptocytes SLIGHT = 2-5 cells (100X) (0-1/hpf); Hypochromia SLIGHT = 6-15 cells (100X) (0-5/hpf); MDiff Complete? YES; Mean Corpuscular HGB CONC 31.5 g/dL (32.0-36.0); Mean Corpuscular Hemoglobin 21.9 pg (27.0-31.0); Mean Corpuscular Volume 69.5 fL (78.0-98.0); Mean Platelet Volume 9.5 fL (7.4-10.4); Microcytosis SLIGHT = 6-15 cells (100X) (0-5/hpf); Platelet Count 172 thou/uL (130-400); Poikilocytosis SLIGHT = 6-15 cells (100X) (0-5/hpf); RBC Distribution Width 18.9 % (11.5-14.5); Red Blood Cell (RBC) Count 4.58 mill/uL (4.20-5.40); White Blood Cell (WBC) Count 6.9 thou/uL (4.8-10.8)
[2018-02-12 06:10] LABS: Anion Gap 11 mmol/L (10-20); BUN (Urea Nitrogen) 11 mg/dL (9.8-20.1); Calc. Creatinine Clearance 93 mL/min (70-130); Carbon Dioxide 30 mmol/L (23-31); Chloride 89 mmol/L (98-107); Estimated GFR-MDRD 81; Glucose 105 mg/dL (83-110); Potassium 3.5 mmol/L (3.5-5.1); Sodium 126 mmol/L (136-145)
[2018-02-12 06:12] VITALS: BMI 32.8
[2018-02-12] MEDS ORDERED: Potassium Chloride 20 MEQ TAB PO SCH (08:30)
[2018-02-12] MEDS ORDERED: Furosemide 40 MG/4 ML VIAL SLOW IVP SCH (08:30)
[2018-02-12] MEDS: Acetaminophen 500 MG TAB PO PRN (09:25)
[2018-02-12] MEDS: guaiFENesin ER 600 MG TAB PO SCH ×2 (09:28→20:53)
[2018-02-12] MEDS: Famotidine 20 MG TAB PO SCH (09:29)
[2018-02-12] MEDS: Ferrous Sulfate 325 MG TAB PO SCH (09:29)
[2018-02-12] MEDS: Aspirin 81 mg Enteric Coated Tablet PO SCH ×2 (09:29→20:53)
[2018-02-12] MEDS: Saccharomyces boulardii 250 MG CAP PO SCH (09:30)
[2018-02-12] MEDS: Enoxaparin Sodium 30 MG/0.3 ML SYRINGE SC SCH (09:30)
[2018-02-12] MEDS: Furosemide 20 MG TAB PO SCH (09:40)
[2018-02-12] MEDS: cefTRIAXone\\ROCEPHIN 1 GM in Sodium Chloride 0.9% 100 ML IVPB SCH (13:34)
[2018-02-12 14:41] LABS: Iron 16 ug/dL (50-170); Iron Binding Capacity, Total 319 mcg/dL (265-497)
[2018-02-12 16:37] LABS: Anion Gap 13 mmol/L (10-20); BUN (Urea Nitrogen) 12 mg/dL (9.8-20.1); Calc. Creatinine Clearance 88 mL/min (70-130); Calcium 8.9 mg/dL (7.8-10.44); Carbon Dioxide 32 mmol/L (23-31); Chloride 99 mmol/L (98-107); Estimated GFR-MDRD 77; Glucose 102 mg/dL (83-110); Potassium 4.4 mmol/L (3.5-5.1); Sodium 140 mmol/L (136-145)
[2018-02-12] MEDS: Azithromycin 500 MG in Sodium Chloride 0.9% 250 ML 250 ML IVPB SCH (17:29)
[2018-02-13 06:25] LABS: #Eosinphils 0.2 thou/uL (0.0-0.7); #Lymphocytes 0.8 thou/uL (1.20-3.40); #Monocytes 0.6 thou/uL (0.11-0.59); #Neutrophils 4.2 thou/uL (1.40-6.50); %Basophils 0.8 % (0.0-1.0); %Eosinophils 3.6 % (0.0-10.0); %Monocytes 10.8 % (0.0-10.0); %Neutrophils 70.9 % (42.0-75.0); Anisocytosis SLIGHT = 6-15 cells (100X) (0-5/hpf); Elliptocytes SLIGHT = 2-5 cells (100X) (0-1/hpf); Hypochromia SLIGHT = 6-15 cells (100X) (0-5/hpf); MDiff Complete? YES; Mean Corpuscular HGB CONC 31.9 g/dL (32.0-36.0); Mean Corpuscular Hemoglobin 22.1 pg (27.0-31.0); Mean Corpuscular Volume 69.1 fL (78.0-98.0); Microcytosis SLIGHT = 6-15 cells (100X) (0-5/hpf); Platelet Count 195 thou/uL (130-400); Poikilocytosis SLIGHT = 6-15 cells (100X) (0-5/hpf); Red Blood Cell (RBC) Count 4.51 mill/uL (4.20-5.40); Tear Drops SLIGHT = 2-5 cells (100X) (0-1/hpf)
[2018-02-13 06:29] LABS: ALT (SGPT) 13 U/L (8-55); AST (SGOT) 13 U/L (5-34); Albumin 3.5 g/dL (3.4-4.8); Alkaline Phosphatase 72 U/L (40-150); Anion Gap 11 mmol/L (10-20); BUN (Urea Nitrogen) 12 mg/dL (9.8-20.1); Bilirubin, Total 0.8 mg/dL (0.2-1.2); Calc. Creatinine Clearance 86 mL/min (70-130); Calcium 9.1 mg/dL (7.8-10.44); Carbon Dioxide 34 mmol/L (23-31); Chloride 101 mmol/L (98-107); Estimated GFR-MDRD 73; Globulin 2.1 g/dL (2.4-3.5); Glucose 97 mg/dL (83-110); Protein, Total 5.6 g/dL (6.0-8.3); Sodium 142 mmol/L (136-145)
--- NOTE | 2018-02-13 07:32 | RAD ---
CHEST 2 VIEWS: Date: 02/13/18 Comparison made with the 02/10/18 study. There is still infiltrate in the right lower lobe, consistent with pneumonia. There is probably a tin y amount of pleural fluid here. Small amount of linear streaking is seen over the elevated left hemid iaphragm. The area concerning for a nodular density on the left is less evident today. Cardiomegaly i s about the same as before, but the vessels do not seem congested. IMPRESSION: Chronic changes with persisting right basilar infiltrate. POS: HOME
[2018-02-13] MEDS: Acetaminophen 500 MG TAB PO PRN (09:08)
[2018-02-13] MEDS: Furosemide 20 MG TAB PO SCH (09:09)
[2018-02-13] MEDS: Ferrous Sulfate 325 MG TAB PO SCH (09:09)
[2018-02-13] MEDS: Saccharomyces boulardii 250 MG CAP PO SCH (09:09)
[2018-02-13] MEDS: guaiFENesin ER 600 MG TAB PO SCH ×2 (09:10→20:40)
[2018-02-13] MEDS: Famotidine 20 MG TAB PO SCH (09:10)
[2018-02-13] MEDS: Enoxaparin Sodium 30 MG/0.3 ML SYRINGE SC SCH (09:15)
[2018-02-13] MEDS: Aspirin 81 mg Enteric Coated Tablet PO SCH ×2 (09:18→20:39)
[2018-02-13] MEDS: cefTRIAXone\\ROCEPHIN 1 GM in Sodium Chloride 0.9% 100 ML IVPB SCH (14:33)
[2018-02-13] MEDS ORDERED: Furosemide 40 MG/4 ML VIAL SLOW IVP SCH (16:00)
[2018-02-13] MEDS: Azithromycin 500 MG in Sodium Chloride 0.9% 250 ML 250 ML IVPB SCH (17:53)
[2018-02-14] MEDS: Ferrous Sulfate 325 MG TAB PO SCH (08:36)
[2018-02-14] MEDS: Furosemide 20 MG TAB PO SCH (09:01)
[2018-02-14] MEDS: Aspirin 81 mg Enteric Coated Tablet PO SCH ×2 (09:02→20:25)
[2018-02-14] MEDS: guaiFENesin ER 600 MG TAB PO SCH ×2 (09:02→20:25)
[2018-02-14] MEDS: Famotidine 20 MG TAB PO SCH (09:04)
[2018-02-14] MEDS: Enoxaparin Sodium 30 MG/0.3 ML SYRINGE SC SCH (09:05)
[2018-02-14] MEDS: Saccharomyces boulardii 250 MG CAP PO SCH (09:07)
--- NOTE | 2018-02-14 10:11 | RAD ---
CHEST 2 VIEWS: Date: 02/14/18 Comparison is made with yesterday's study of 02/13/18. FINDINGS: The vasculature seems a trifle more congested today than it was yesterday. The right basilar infiltra te has improved slightly. The streaking over the elevated left hemidiaphragm is about the same as bef ore. The cardiac size is stable, being mildly enlarged. IMPRESSION: 1. Possible slight worsening of vascular congestion. 2. Improvement of right basilar infiltrate. 3. Little change in left basilar infiltrate. 4. Cardiomegaly and chronically elevated left hemidiaphragm, as usual. POS: HOME
[2018-02-14] MEDS: cefTRIAXone\\ROCEPHIN 1 GM in Sodium Chloride 0.9% 100 ML IVPB SCH (12:49)
[2018-02-14] MEDS: Azithromycin 500 MG in Sodium Chloride 0.9% 250 ML 250 ML IVPB SCH (17:56)
[2018-02-14] MEDS ORDERED: Furosemide 40 MG/4 ML VIAL IVP SCH (18:00)
--- NOTE | 2018-02-14 18:28 | PRG ---
DATE OF SERVICE: 02/14/2018 SUBJECTIVE: The patient is still complaining of productive cough with shortness of breath, breathing is still labored. She is not urinating as much compared to yesterday after being given IV Lasix. Her appetite is at baseline. She denies fever. OBJECTIVE: VITAL SIGNS: Blood pressure of 150/69, pulse rate of 75, respiratory rate of 20, O2 saturation 91% on 2 L. GENERAL: The patient is alert, oriented, slightly labored breathing with coughing fits. HEENT: Normocephalic, atraumatic. Pupils are equally reactive to light. NECK: Supple. Negative for lymphadenopathy. Negative for jugular venous distention. HEART: Regular rate and rhythm. Negative for murmur, rubs, or gallops. CHEST AND LUNGS: Positive use of accessory muscles. Decreased breath sounds on left lung gutierrez. Good breath sounds on right lower lung gutierrez. ABDOMEN: Slightly distended. Normoactive bowel sounds. Negative for deep or rebound tenderness. EXTREMITIES: Positive for pitting edema, grade 2+ on both lower extremities. NEUROLOGIC: Alert and oriented x3. Affect is normal. PSYCH: Appropriate affect and demeanor. DIAGNOSTIC STUDIES: Chest x-ray showed possible slight worsening of vascular congestion. Improvement of the right basilar infiltrate. Little change in left basilar infiltrate. Presence of cardiomegaly with chronically elevated left hemidiaphragm. ASSESSMENT: 1. Bilateral pneumonia, community acquired, currently on IV Rocephin and azithromycin, continue present antibiotics. 2. Acute on chronic exacerbation of congestive heart failure, not currently improving with current dose of Lasix p.o. We will change to furosemide 40 mg IV b.i.d. 3. We will need to monitor her creatinine. 4. History of restrictive lung disease, O2 dependent. Continue present O2 support. 5. Hypertension, uncontrolled. Continue to monitor. 6. Microcytic anemia, stable. 7. Degenerative joint disease. Continue physical and occupational therapy. 8. Routine labs on 02/16/2018. Job ID: [id number]
[2018-02-15] MEDS: Furosemide 40 MG/4 ML VIAL IVP SCH ×2 (06:04→13:45)
[2018-02-15] MEDS: Famotidine 20 MG TAB PO SCH (09:25)
[2018-02-15] MEDS: Saccharomyces boulardii 250 MG CAP PO SCH (09:25)
[2018-02-15] MEDS: Aspirin 81 mg Enteric Coated Tablet PO SCH ×2 (09:25→20:19)
[2018-02-15] MEDS: Enoxaparin Sodium 30 MG/0.3 ML SYRINGE SC SCH (09:25)
[2018-02-15] MEDS: guaiFENesin ER 600 MG TAB PO SCH ×2 (09:25→20:19)
[2018-02-15] MEDS: Ferrous Sulfate 325 MG TAB PO SCH (09:26)
[2018-02-15] MEDS: cefTRIAXone\\ROCEPHIN 1 GM in Sodium Chloride 0.9% 100 ML IVPB SCH (12:31)
[2018-02-15] MEDS: Azithromycin 500 MG in Sodium Chloride 0.9% 250 ML 250 ML IVPB SCH (18:24)
[2018-02-16 04:17] LABS: Anion Gap 11 mmol/L (10-20); BUN (Urea Nitrogen) 10 mg/dL (9.8-20.1); Calc. Creatinine Clearance 97 mL/min (70-130); Calcium 8.7 mg/dL (7.8-10.44); Carbon Dioxide 36 mmol/L (23-31); Chloride 100 mmol/L (98-107); Estimated GFR-MDRD 85; Glucose 102 mg/dL (83-110); Potassium 3.5 mmol/L (3.5-5.1); Sodium 143 mmol/L (136-145)
[2018-02-16] MEDS: Furosemide 40 MG/4 ML VIAL IVP SCH (06:00)
[2018-02-16 06:50] VITALS: BP 129/64; TEMP 98
[2018-02-16] MEDS: Ferrous Sulfate 325 MG TAB PO SCH (08:49)
[2018-02-16] MEDS: guaiFENesin ER 600 MG TAB PO SCH (08:50)
[2018-02-16] MEDS: Famotidine 20 MG TAB PO SCH (08:51)
[2018-02-16] MEDS: Saccharomyces boulardii 250 MG CAP PO SCH (08:51)
[2018-02-16] MEDS: Aspirin 81 mg Enteric Coated Tablet PO SCH (08:52)
[2018-02-16] MEDS: Enoxaparin Sodium 30 MG/0.3 ML SYRINGE SC SCH (08:52)
--- NOTE | 2018-02-16 10:15 | DIS ---
DATE OF ADMISSION: 02/10/2018 DATE OF DISCHARGE: 02/16/2018 ADMISSION DIAGNOSES: 1. Right lower lobe community-acquired pneumonia. 2. Hypoxia. SECONDARY DIAGNOSES: 1. Restrictive/obstructive lung disease. 2. Diastolic congestive heart failure. 3. Hypertension. 4. Osteoarthritis. 5. Microcytic anemia. 6. Hyponatremia. PROCEDURES: 1. On 02/10/2018, chest x-ray showed streaky right basilar infiltrate, 1 cm nodular density to the left upper lobe, new finding. Moderate cardiomegaly, stable. No clear signs of congestive heart failure. Chronic elevation of the left hemidiaphragm. 2. On 02/11/2018, chest CT showed bibasilar pneumonia. No nodule demonstrated. Small pericardial effusion. 3. On 02/13/2018, chest x-ray, chronic changes with persistent right basilar infiltrate. 4. On 02/14/2018, chest x-ray, possible slight worsening of vascular congestion, improvement of right basilar infiltrate, little change in left basilar infiltrate. Cardiomegaly with chronically elevated left hemidiaphragm as usual. HOSPITAL COURSE: An 87-year-old female with underlying restrictive/obstructive lung disease, for which she is oxygen dependent, presented to the outpatient clinical setting with worsening upper respiratory symptoms prompting her direct admission to the hospital due to dyspnea and fever with suspected CAP. Subsequent workup revealed a right lower lobe community-acquired pneumonia, for which she was started empirically on Rocephin and IV azithromycin. Initial leukocytosis with left shift, quickly abated with these antibiotics. The patient was continued on supplemental oxygen and provided scheduled nebulized treatments. The patient's respiratory status gradually improved back to her baseline. She was treated with IV Lasix on more than one occasion secondary to slight gain in weight and findings of increased lower extremity edema. The patient did have a reading of hyponatremia, however, this was felt to be in error and followup sodium studies were notably within normal limits. The patient feels much improved at this time and is back to her baseline respiratory status. She is amenable to discharge back to her home setting to complete further oral course of p.o. antibiotics. She has been instructed to monitor her weight daily and may take an extra dose of Lasix as warranted. DISPOSITION: The patient was discharged to her home setting where she lives with her . She may follow up with myself in the clinic in 1 week. DISCHARGE MEDICATIONS: 1. Tylenol with Codeine q.8 hours p.r.n. 2. Aspirin 81 mg p.o. daily. 3. Cyanocobalamin 1000 mcg subcutaneously twice a month. 4. Lasix 40 mg 1 to 2 tabs daily. 5. Keflex 500 mg p.o. b.i.d. x5 days. 6. Azithromycin 250 mg p.o. daily x5 days. 7. Continue supplemental oxygen p.r.n. Job ID: [id number] [facility]
== END 2018-02-16 10:25 | disposition home or self-care (01) | DRG 193 ==
LOC: BURMED 09:35
PROVIDERS: ADMIT Family Medicine; ATTEND Family Medicine
DX: J18.1 Lobar pneumonia, unspecified organism (principal); I50.33 Acute on chronic diastolic (congestive) heart failure; J44.0 Chronic obstructive pulmonary disease with (acute) lower respiratory infection; R09.02 Hypoxemia; M19.90 Unspecified osteoarthritis, unspecified site; E53.8 Deficiency of other specified B group vitamins; R91.1 Solitary pulmonary nodule; I08.1 Rheumatic disorders of both mitral and tricuspid valves; I27.20 Pulmonary hypertension, unspecified; I11.0 Hypertensive heart disease with heart failure; D50.9 Iron deficiency anemia, unspecified; J98.4 Other disorders of lung; Z90.49 Acquired absence of other specified parts of digestive tract; Z90.710 Acquired absence of both cervix and uterus; Z98.890 Other specified postprocedural states; Z88.1 Allergy status to other antibiotic agents; Z88.8 Allergy status to other drugs, medicaments and biological substances; Z79.82 Long term (current) use of aspirin; Z79.899 Other long term (current) drug therapy; Z99.81 Dependence on supplemental oxygen
CPT/HCPCS: 36415; 71046; 71260; 80048; 80053; 81003; 81015; 82728; 83540; 83550; 83880; 85025; 87040; 87086; 94640; G8981-GP-CK; G8982-GP-CH; G8987-GO-CJ; G8988-GO-CI; J0456; J0696; J1650; J1940; J7050; J7620

== ENCOUNTER 2019-02-05 16:53 | Emergency (ER) | payer MEDICARE ==
[2019-02-05] MEDS ORDERED: Cefepime 1 GM VIAL ONE (17:04)
[2019-02-05 17:38] LABS: ALT (SGPT) 12 U/L (8-55); AST (SGOT) 18 U/L (5-34); Albumin 4.1 g/dL (3.4-4.8); Alkaline Phosphatase 86 U/L (40-110); Anion Gap 18 mmol/L (10-20); BUN (Urea Nitrogen) 14 mg/dL (9.8-20.1); Bilirubin, Total 2.6 mg/dL (0.2-1.2); Calc. Creatinine Clearance 0 mL/min (70-130); Calcium 9.1 mg/dL (7.8-10.44); Carbon Dioxide 28 mmol/L (23-31); Chloride 99 mmol/L (98-107); Estimated GFR-MDRD 70; Glucose 110 mg/dL (83-110); Potassium 3.9 mmol/L (3.5-5.1); Protein, Total 6.1 g/dL (6.0-8.3); Sodium 141 mmol/L (136-145)
[2019-02-05 17:40] LABS: Base Excess-Venous 4.6 mmol/L (-2.0 to 3.0); Bicarbonate (HCO3v) 30.6 mmol/L (22.0-28.0); Calcium, Ionized 1.12 mmol/L (See Comments:); Chloride 96 mmol/L (98-107); Hemoglobin - Calc 13.1 g/dL (12.0-16.0); Potassium 3.5 mmol/L (3.5-5.1); Sodium 138 mmol/L (138-145); T. Carbon Dioxide 32.1 mmol/L (22.0-28.0); vO2 Saturation-calc 54.8 % (60.0-85.0)
[2019-02-05 17:42] LABS: #Lymphocytes 1.2 thou/uL (1.20-3.40); #Monocytes 1.1 thou/uL (0.11-0.59); #Neutrophils 9.2 thou/uL (1.40-6.50); %Basophils 0.4 % (0.0-1.0); %Eosinophils 0.1 % (0.0-10.0); %Lymphocytes 10.1 % (21.0-51.0); %Monocytes 9.2 % (0.0-10.0); %Neutrophils 80.3 % (42.0-75.0); Hemoglobin 11.9 g/dL (12.0-16.0); Hypochromia SLIGHT = 6-15 cells (100X) (0-5/hpf); MDiff Complete? YES; Mean Corpuscular Hemoglobin 24.9 pg (27.0-31.0); Mean Corpuscular Volume 80.1 fL (78.0-98.0); Mean Platelet Volume 10.8 fL (7.4-10.4); Platelet Count 146 thou/uL (130-400); RBC Distribution Width 15.9 % (11.5-14.5); White Blood Cell (WBC) Count 11.5 thou/uL (4.8-10.8)
--- NOTE | 2019-02-05 17:42 | RAD ---
PORTABLE CHEST: 02/05/19 Comparison is made with the 02/14/18 study. Many chronic changes are present but there really has been little change since the prior exam. Marked elevation of the left hemidiaphragm is present as usual with compressive atelectasis of the left low er lobe right over it. Bowel is seen beneath the elevated diaphragm. There is some streaking in the right base adjacent to the heart border, but this is most likely scarring which has been present befo re. The heart is quite large but there are no clear findings of CHF. IMPRESSION: Chronic changes as noted that are little different than the prior exam. If the clinical suspicion of pneumonia is high, one may need a noncontrast CT to prove to prove it. POS: HOME
[2019-02-05] MEDS ORDERED: Acetaminophen 325 MG TAB ONE (17:57)
[2019-02-05 18:46] LABS: Bilirubin Small (Negative); Blood, Urine Negative (Negative); Clarity Clear (Clear); Glucose, Urine (Dipstick) Negative (Negative); Leukocyte Trace (Negative); Nitrite Negative (Negative); Protein, Urine (Dipstick) 30 mg/dL (Neg-Trace)
[2019-02-05 18:50] LABS: Bacteria/HPF 1+ HPF (None Seen); Mucous/LPF 1+ LPF (<2+); RBC/HPF 0-3 HPF (0-3); Squamous Epithelial 0-3 HPF (0-3); WBC/HPF 0-3 HPF (0-3)
--- NOTE | 2019-02-05 23:12 | CT ---
CT OF THE CHEST WITHOUT CONTRAST 02/05/19 COMPARISON: Comparison is made with the prior study dated 02/11/18. Chronic elevation of the left hemidiaphragm i s no different than before. Infiltrate is see in the right lower lobe posteriorly and seems more than was present previously and is thought to represent pneumonia on top of chronic changes. A small righ t pleural effusion is present. There is also some haziness in the left lower lobe, though much of thi s is compressive atelectasis due to the raised diaphragm. Nevertheless, there may be some additional superimposed acute infiltrate. No effusion is seen on this side. Arteriosclerotic change is present in the aorta and coronary vessels. The pulmonary arteries are larg e with the right pulmonary artery measuring up to 3.7 cm in diameter. Pulmonary arterial hypertension is suspected. Scoliosis is present as well as degenerative change at multiple levels. A large cyst is seen in the upper pole of the right kidney. It measures 4.4 cm in size and is similar to the prior scan. No adrenal masses were seen. IMPRESSION: 1. Chronic elevation of the left hemidiaphragm, similar to before. 2. Increased patchy infiltrative changes in the right lower lobe posteriorly. Pneumonia on top o f chronic changes seems probable. There is also a small right pleural effusion. 3. Compressive atelectasis of the left lower lobe. There may be some acute infiltrate here as w ell. 4. Enlargement of the pulmonary arteries suggestive of pulmonary arterial hypertension. FINDINGS DISCUSSED WITH DR TAMAYO @ 0648 ON 02/05/19. POS: HOME
== END 2019-02-05 19:23 | disposition short-term general hospital (02) ==
LOC: BURERS 16:53
DX: J18.9 Pneumonia, unspecified organism (principal); I11.0 Hypertensive heart disease with heart failure; I50.9 Heart failure, unspecified; Z79.899 Other long term (current) drug therapy; Z79.82 Long term (current) use of aspirin
CPT/HCPCS: 36415; 71045; 71250; 80053; 81003; 81015; 82330; 82435; 82803; 83605; 83880; 84132; 84295; 84484; 85014; 85025; 87040; 87086; 87804; 93005; 96365; 96367; J0692; J3370

== ENCOUNTER 2019-04-23 13:43 | Emergency (ER) | payer MEDICARE ==
[2019-04-23 14:53] LABS: #Lymphocytes 0.5 thou/uL (1.20-3.40); #Monocytes 0.4 thou/uL (0.11-0.59); #Neutrophils 7.7 thou/uL (1.40-6.50); %Basophils 0.4 % (0.0-1.0); %Eosinophils 0.4 % (0.0-10.0); %Monocytes 5.1 % (0.0-10.0); %Neutrophils 88.2 % (42.0-75.0); Hemoglobin 12.2 g/dL (12.0-16.0); Mean Corpuscular HGB CONC 30.2 g/dL (32.0-36.0); Mean Corpuscular Volume 76.3 fL (78.0-98.0); Mean Platelet Volume 9.5 fL (7.4-10.4); Platelet Count 170 thou/uL (130-400); RBC Distribution Width 16.3 % (11.5-14.5); Red Blood Cell (RBC) Count 5.31 mill/uL (4.20-5.40); White Blood Cell (WBC) Count 8.7 thou/uL (4.8-10.8)
[2019-04-23 15:07] LABS: ALT (SGPT) 12 U/L (8-55); AST (SGOT) 16 U/L (5-34); Albumin 4.2 g/dL (3.4-4.8); Alkaline Phosphatase 87 U/L (40-110); Anion Gap 14 mmol/L (10-20); BUN (Urea Nitrogen) 10 mg/dL (9.8-20.1); Bilirubin, Total 2.3 mg/dL (0.2-1.2); Calc. Creatinine Clearance 0 mL/min (70-130); Calcium 9.3 mg/dL (7.8-10.44); Carbon Dioxide 32 mmol/L (23-31); Chloride 99 mmol/L (98-107); Estimated GFR-MDRD 74; Globulin 2.2 g/dL (2.4-3.5); Glucose 115 mg/dL (83-110); Potassium 3.7 mmol/L (3.5-5.1); Protein, Total 6.4 g/dL (6.0-8.3); Sodium 141 mmol/L (136-145)
[2019-04-23 15:15] LABS: Hypochromia SLIGHT = 6-15 cells (100X) (0-5/hpf); MDiff Complete? YES; Microcytosis SLIGHT = 6-15 cells (100X) (0-5/hpf)
[2019-04-23] MEDS ORDERED: methylPREDNISolone Sod Succ/PF 125 MG/2 ML VIAL ONE (15:40)
--- NOTE | 2019-04-23 15:43 | RAD ---
CHEST TWO VIEWS: 04/23/19 Comparison is made with a prior chest film of 02/05/19, as well as a CT scan done at the time. Elevation of the left hemidiaphragm is chronic and little different than before. Minimal haziness ov er the left hemidiaphragm is probably atelectasis. No major lobar infiltrate was seen. Small basilar infiltrates might be missed on this study. There is no gross vascular congestion, edema, or pleural e ffusions. There is a vague 1 cm nodular density overlying the left upper lobe, partially overlapped by rib. Josie lujan back at the 2018 scan, I do not see any nodules here at that time. This might be watc hed on subsequent chest films. The heart is enlarged but there is no sign of congestive failure. IMPRESSION: 1. Cardiomegaly, similar to before, but with no acute changes. 2. Chronically elevated left hemidiaphragm, stable. Minor basilar atelectasis over it. 3. Vague 1 cm nodular density in the left upper lobe, not present on the January CT. It is dif ficult to know at this point if this is a real finding or due to overlapping shadows. I would suggest merely keeping an eye on it on follow-up chest x-ray. POS: HOME
[2019-04-23 16:29] LABS: Bilirubin Negative (Negative); Blood, Urine Small (Negative); Clarity Clear (Clear); Glucose, Urine (Dipstick) Negative (Negative); Leukocyte Negative (Negative); Nitrite Negative (Negative); Protein, Urine (Dipstick) Negative (Neg-Trace)
[2019-04-23 16:31] LABS: Bacteria/HPF None Seen HPF (None Seen); Broad Cast None Seen LPF (None Seen); Calcium Oxalate Crystals None Seen HPF (None Seen); Cellular Cast None Seen LPF (None Seen); Epithelial Cast None Seen LPF (None Seen); Fatty Cast None Seen LPF (None Seen); Mucous/LPF None Seen LPF (<2+); Other Casts None Seen LPF (None Seen); Oval Fat Bodies/HPF None Seen HPF (None Seen); Red Blood Cell Cast None Seen LPF (None Seen); Renal Epithelial None Seen HPF (None Seen); Sperm/HPF None Seen HPF (None Seen); Squamous Epithelial None Seen HPF (0-3); Transitional Epithelial None Seen HPF (None Seen); Trichomonas/HPF None Seen HPF (None Seen); Triple Phosphate Crystal None Seen HPF (None Seen); Unclassified Crystals None Seen HPF (None Seen); WBC/HPF None Seen HPF (0-3); Waxy Cast None Seen LPF (None Seen); White Blood Cell Cast None Seen LPF (None Seen); Yeast-Budding None Seen HPF (None Seen); Yeast-Hyphae None Seen HPF (None Seen)
--- NOTE | 2019-04-23 17:03 | CT ---
CT ANGIO OF THE CHEST WITH CONTRAST: 04/23/[address] of the chest was done after a bolus of IV contrast. Comparison is made with a prior CT da michael 02/05/19. There is very good opacification of the pulmonary arteries. There were no internal defects to suggest emboli. The pulmonary arteries are quite large, the right pulmonary artery measuring up to 4 cm in d iameter. This suggests pulmonary arterial hypertension. The aorta shows no aneurysm or dissection. Both coronary arteries fill with contrast. There is no lar ge pericardial effusion. There might be a small one, at most. No mediastinal mass or adenopathy of co ncern was seen. There is a small hypolucent nodule in the right lobe of the thyroid gland measuring 1 .5 cm in size. Given her age, this is probably not of real concern. It was seen on prior scans also. The lungs are actually clear today than they have been on many prior scans. Particularly, the area of the right lower lobe is much clearer. There might be a very small amount of pleural thickening or fl uid on the right posteriorly. The left hemidiaphragm is chronically elevated and appears no different . Scans into the upper abdomen show small amounts of air in the intrahepatic bile ducts. While a little more today than before, I can see some in some of the prior scans. This could relate to her prior ch olecystectomy and any instrumentation done at the time. A cyst in the upper pole of the right kidney measures 4.4 cm in size and has changed little in the interval. The adrenal glands do not appear enla rged. A slight compression of a vertebra near the thoracolumbar junction is present as usual. IMPRESSION: 1. No evidence of pulmonary embolism. 2. Enlargement of the pulmonary arteries, most likely due to pulmonary arterial hypertension. 3. Some minimal atelectasis and scarring in the lung bases, but the lungs are actually clearer t godwin on prior scans. 4. Small amounts of air in the biliary tree, but present previously. Findings discussed with Dr. Heart at 1607 on 04/23/19. POS: HOME
== END 2019-04-23 17:04 | disposition home or self-care (01) ==
LOC: BURERS 13:43
DX: J44.1 Chronic obstructive pulmonary disease with (acute) exacerbation (principal); I11.0 Hypertensive heart disease with heart failure; I50.9 Heart failure, unspecified; Z79.82 Long term (current) use of aspirin; Z79.899 Other long term (current) drug therapy
CPT/HCPCS: 71046; 71275; 80053; 81003; 81015; 83605; 83880; 84484; 85025; 85379; 87040; 93005; 94640; 96374; J2930; J7620

== ENCOUNTER 2020-02-13 10:16 | Emergency (ER) | payer MEDICARE ==
[2020-02-13] MEDS ORDERED: Midazolam HCl 2 mg/2 ml Vial ONE (10:23)
[2020-02-13] MEDS ORDERED: Adenosine 6 MG/2 ML VIAL ONE (10:25)
[2020-02-13] MEDS ORDERED: Diltiazem 125 MG/25 ML ONE (10:34)
[2020-02-13 10:50] LABS: ALT (SGPT) 15 U/L (8-55); AST (SGOT) 21 U/L (5-34); Alkaline Phosphatase 73 U/L (40-110); Anion Gap 18 mmol/L (10-20); BUN (Urea Nitrogen) 18 mg/dL (9.8-20.1); Calc. Creatinine Clearance 0 mL/min (70-130); Calcium 8.8 mg/dL (7.8-10.44); Carbon Dioxide 26 mmol/L (23-31); Chloride 98 mmol/L (98-107); Globulin 2.4 g/dL (2.4-3.5); Glucose 138 mg/dL (83-110); Potassium 3.9 mmol/L (3.5-5.1); Protein, Total 6.4 g/dL (6.0-8.3); Sodium 138 mmol/L (136-145)
[2020-02-13 10:55] LABS: #Basophils 0.1 thou/uL (0.0-0.2); #Lymphocytes 0.8 thou/uL (1.20-3.40); #Monocytes 0.7 thou/uL (0.11-0.59); #Neutrophils 6.2 thou/uL (1.40-6.50); %Basophils 0.8 % (0.0-1.0); %Eosinophils 0.3 % (0.0-10.0); %Lymphocytes 9.8 % (21.0-51.0); %Neutrophils 80.1 % (42.0-75.0); Hemoglobin 12.4 g/dL (12.0-16.0); MDiff Complete? YES; Mean Corpuscular HGB CONC 30.5 g/dL (32.0-36.0); Mean Corpuscular Hemoglobin 24.6 pg (27.0-31.0); Mean Corpuscular Volume 80.7 fL (78.0-98.0); Mean Platelet Volume 10.1 fL (7.4-10.4); Ovalocytes SLIGHT = 2-5 cells (100X) (0-1/hpf); Platelet Count 181 thou/uL (130-400); RBC Distribution Width 17.3 % (11.5-14.5); Red Blood Cell (RBC) Count 5.04 mill/uL (4.20-5.40); Target Cells SLIGHT = 2-5 cells (100X) (0-1/hpf); Tear Drops SLIGHT = 2-5 cells (100X) (0-1/hpf); White Blood Cell (WBC) Count 7.7 thou/uL (4.8-10.8)
[2020-02-13] MEDS ORDERED: Furosemide 40 MG/4 ML VIAL ONE (11:05)
[2020-02-13] MEDS ORDERED: Aspirin Chewable 81 MG TAB ONE (11:05)
--- NOTE | 2020-02-13 11:56 | RAD ---
SINGLE VIEW OF CHEST: Date: 02/13/2020 COMPARISON: 04/23/2019. HISTORY: Dyspnea. FINDINGS: Single view of the chest shows enlarged but stable cardiomediastinal silhouette. There is stable elev ation of the left hemidiaphragm. There is no evidence of consolidation, mass, or pleural effusion. De generative changes are seen in the spine. IMPRESSION: Stable cardiomegaly and left hemidiaphragm elevation. POS: [facility]
[2020-02-13] MEDS ORDERED: Nitroglycerin 2% Ointment 1 INCH/1 GM Packet ONE (12:00)
== END 2020-02-13 12:32 | disposition home or self-care (01) ==
LOC: BURERS 10:16
DX: I48.91 Unspecified atrial fibrillation (principal); I50.9 Heart failure, unspecified; Z79.899 Other long term (current) drug therapy; Z79.82 Long term (current) use of aspirin
CPT/HCPCS: 36415; 71045; 80053; 83880; 84484; 85025; 93005; 94760; 96365; 96366; 96375; 96376; J0153; J1940; J2250

== ENCOUNTER 2020-05-23 19:50 | Inpatient (IN) | payer MEDICARE ==
[2020-05-23] MEDS ORDERED: Acetaminophen 325 MG TAB PO PRN (21:43)
[2020-05-24] MEDS: Cephalexin 250 MG CAP PO SCH ×4 (00:20→18:18)
[2020-05-24 05:34] LABS: ALT (SGPT) 12 U/L (8-55); AST (SGOT) 17 U/L (5-34); Alkaline Phosphatase 61 U/L (40-110); Anion Gap 16 mmol/L (10-20); BUN (Urea Nitrogen) 26 mg/dL (9.8-20.1); Bilirubin, Total 1.5 mg/dL (0.2-1.2); Calc. Creatinine Clearance 0 mL/min (70-130); Calcium 9.2 mg/dL (7.8-10.44); Carbon Dioxide 35 mmol/L (23-31); Globulin 1.9 g/dL (2.4-3.5); Glucose 107 mg/dL (83-110); Protein, Total 4.9 g/dL (5.8-8.1)
[2020-05-24 05:38] LABS: Chloride 92 mmol/L (98-107); Potassium 3.3 mmol/L (3.5-5.1); Sodium 140 mmol/L (136-145)
[2020-05-24 05:46] LABS: #Eosinphils 0.1 thou/uL (0.0-0.7); #Lymphocytes 0.4 thou/uL (1.20-3.40); #Monocytes 0.6 thou/uL (0.11-0.59); #Neutrophils 3.7 thou/uL (1.40-6.50); %Basophils 0.6 % (0.0-1.0); %Eosinophils 2.9 % (0.0-10.0); %Lymphocytes 7.9 % (21.0-51.0); %Monocytes 11.6 % (0.0-10.0); %Neutrophils 77.1 % (42.0-75.0); Hemoglobin 10.7 g/dL (12.0-16.0); Mean Corpuscular HGB CONC 30.7 g/dL (32.0-36.0); Mean Corpuscular Hemoglobin 23.6 pg (27.0-31.0); Mean Corpuscular Volume 76.8 fL (78.0-98.0); Mean Platelet Volume 9.7 fL (7.4-10.4); Platelet Count 152 thou/uL (130-400); RBC Distribution Width 17.9 % (11.5-14.5); Red Blood Cell (RBC) Count 4.54 mill/uL (4.20-5.40); White Blood Cell (WBC) Count 4.7 thou/uL (4.8-10.8)
[2020-05-24 05:47] LABS: Anisocytosis SLIGHT = 6-15 cells (100X) (0-5/hpf); Elliptocytes SLIGHT = 2-5 cells (100X) (0-1/hpf); Hypochromia SLIGHT = 6-15 cells (100X) (0-5/hpf); MDiff Complete? YES; Microcytosis SLIGHT = 6-15 cells (100X) (0-5/hpf); Ovalocytes MODERATE= 6-15 cells (100X) (0-1/hpf); Platelet Morphology Comment Appears Adequate; Poikilocytosis MODERATE=16-30 cells (100X) (0-5/hpf); Schistocytes SLIGHT = 2-5 cells (100X) (0-1/hpf); Target Cells SLIGHT = 2-5 cells (100X) (0-1/hpf)
[2020-05-24] MEDS ORDERED: Ondansetron ODT 4 MG TAB PO PRN (07:05)
[2020-05-24] MEDS ORDERED: FLU VACC QS2020-21(65YR UP)/PF 240 MCG/0.7 ML SYRINGE IM ONE (09:00)
[2020-05-24] MEDS: Saccharomyces boulardii 250 MG CAP PO SCH (09:24)
[2020-05-24] MEDS: Digoxin 0.125 MG TAB PO SCH (09:24)
[2020-05-24] MEDS: Apixaban 5 MG TAB PO SCH ×2 (09:25→20:28)
[2020-05-24] MEDS: Ferrous Sulfate 325 MG TAB PO SCH (09:25)
[2020-05-24] MEDS: Furosemide 40 MG TAB PO SCH (09:25)
[2020-05-24] MEDS: Potassium Chloride 20 MEQ TAB PO SCH (09:25)
[2020-05-24] MEDS: Acetaminophen 325 MG TAB PO PRN (18:19)
[2020-05-25] MEDS: Cephalexin 250 MG CAP PO SCH ×5 (00:18→23:49)
[2020-05-25] MEDS: Potassium Chloride 20 MEQ TAB PO SCH (09:02)
[2020-05-25] MEDS: Apixaban 5 MG TAB PO SCH ×2 (09:03→20:34)
[2020-05-25] MEDS: Saccharomyces boulardii 250 MG CAP PO SCH (09:03)
[2020-05-25] MEDS: Ferrous Sulfate 325 MG TAB PO SCH (09:04)
[2020-05-25] MEDS: Furosemide 40 MG TAB PO SCH (09:04)
[2020-05-25] MEDS: Digoxin 0.125 MG TAB PO SCH (09:05)
[2020-05-25] MEDS: Polyethylene Glycol 3350 17 GM Packet PO PRN (12:16)
[2020-05-25] MEDS: Acetaminophen 325 MG TAB PO PRN (16:37)
[2020-05-26] MEDS: Cephalexin 250 MG CAP PO SCH ×4 (05:32→23:57)
[2020-05-26 05:51] LABS: ALT (SGPT) 15 U/L (8-55); AST (SGOT) 18 U/L (5-34); Alkaline Phosphatase 68 U/L (40-110); Anion Gap 14 mmol/L (10-20); BUN (Urea Nitrogen) 25 mg/dL (9.8-20.1); Bilirubin, Total 1.5 mg/dL (0.2-1.2); Calc. Creatinine Clearance 84 mL/min (70-130); Calcium 8.7 mg/dL (7.8-10.44); Carbon Dioxide 35 mmol/L (23-31); Chloride 94 mmol/L (98-107); Globulin 1.9 g/dL (2.4-3.5); Glucose 86 mg/dL (83-110); Potassium 3.7 mmol/L (3.5-5.1); Protein, Total 4.9 g/dL (5.8-8.1); Sodium 139 mmol/L (136-145)
[2020-05-26] MEDS: traMADol HCl 50 MG TAB PO PRN (06:43)
[2020-05-26] MEDS: Furosemide 40 MG TAB PO SCH (08:10)
[2020-05-26] MEDS: Digoxin 0.125 MG TAB PO SCH (08:10)
[2020-05-26] MEDS: Apixaban 5 MG TAB PO SCH ×2 (08:11→20:42)
[2020-05-26] MEDS: Saccharomyces boulardii 250 MG CAP PO SCH (08:11)
[2020-05-26] MEDS: Ferrous Sulfate 325 MG TAB PO SCH (08:11)
[2020-05-26] MEDS: Potassium Chloride 20 MEQ TAB PO SCH (08:12)
[2020-05-27] MEDS: Cephalexin 250 MG CAP PO SCH ×3 (05:58→17:18)
[2020-05-27] MEDS: Saccharomyces boulardii 250 MG CAP PO SCH (09:36)
[2020-05-27] MEDS: Digoxin 0.125 MG TAB PO SCH (09:36)
[2020-05-27] MEDS: Potassium Chloride 20 MEQ TAB PO SCH (09:38)
[2020-05-27] MEDS: Furosemide 40 MG TAB PO SCH (09:38)
[2020-05-27] MEDS: Apixaban 5 MG TAB PO SCH ×2 (09:38→20:34)
[2020-05-27] MEDS: Ferrous Sulfate 325 MG TAB PO SCH (09:38)
[2020-05-27] MEDS: traMADol HCl 50 MG TAB PO PRN ×2 (20:37)
[2020-05-28] MEDS: Cephalexin 250 MG CAP PO SCH ×4 (00:06→17:40)
[2020-05-28] MEDS: Polyethylene Glycol 3350 17 GM Packet PO PRN (09:24)
[2020-05-28] MEDS: Ferrous Sulfate 325 MG TAB PO SCH (09:25)
[2020-05-28] MEDS: Digoxin 0.125 MG TAB PO SCH (09:25)
[2020-05-28] MEDS: Furosemide 40 MG TAB PO SCH (09:31)
[2020-05-28] MEDS: Saccharomyces boulardii 250 MG CAP PO SCH (09:31)
[2020-05-28] MEDS: Apixaban 2.5 MG TAB PO SCH ×2 (09:31→20:23)
[2020-05-28] MEDS: Potassium Chloride 20 MEQ TAB PO SCH (09:32)
[2020-05-28] MEDS: Albuterol 200 PUFF (6.7GM INHALER) INH PRN (20:30)
[2020-05-29] MEDS: Acetaminophen 325 MG TAB PO PRN ×2 (00:43→07:26)
[2020-05-29] MEDS: Cephalexin 250 MG CAP PO SCH ×5 (00:43→23:58)
[2020-05-29 06:12] LABS: ALT (SGPT) 15 U/L (8-55); AST (SGOT) 16 U/L (5-34); Albumin 3.1 g/dL (3.4-4.8); Alkaline Phosphatase 71 U/L (40-110); Anion Gap 13 mmol/L (10-20); BUN (Urea Nitrogen) 36 mg/dL (9.8-20.1); Bilirubin, Total 1.6 mg/dL (0.2-1.2); Calc. Creatinine Clearance 66 mL/min (70-130); Calcium 8.9 mg/dL (7.8-10.44); Carbon Dioxide 35 mmol/L (23-31); Chloride 92 mmol/L (98-107); Globulin 1.9 g/dL (2.4-3.5); Glucose 111 mg/dL (83-110); Potassium 5.1 mmol/L (3.5-5.1); Sodium 135 mmol/L (136-145)
[2020-05-29 06:51] LABS: #Basophils 0.1 thou/uL (0.0-0.2); #Eosinphils 0.1 thou/uL (0.0-0.7); #Lymphocytes 0.8 thou/uL (1.20-3.40); #Monocytes 0.6 thou/uL (0.11-0.59); #Neutrophils 4.7 thou/uL (1.40-6.50); %Basophils 1.2 % (0.0-1.0); %Eosinophils 1.2 % (0.0-10.0); %Lymphocytes 12.6 % (21.0-51.0); %Monocytes 10.2 % (0.0-10.0); %Neutrophils 74.9 % (42.0-75.0); Anisocytosis SLIGHT = 6-15 cells (100X) (0-5/hpf); Burr Cells SLIGHT = 2-5 cells (100X) (0-1/hpf); Hemoglobin 11.3 g/dL (12.0-16.0); MDiff Complete? YES; Mean Corpuscular HGB CONC 31.2 g/dL (32.0-36.0); Mean Corpuscular Hemoglobin 23.6 pg (27.0-31.0); Mean Corpuscular Volume 75.8 fL (78.0-98.0); Mean Platelet Volume 7.9 fL (7.4-10.4); Microcytosis SLIGHT = 6-15 cells (100X) (0-5/hpf); Platelet Count 203 thou/uL (130-400); Platelet Morphology Comment Appears Adequate; RBC Distribution Width 18.4 % (11.5-14.5); Red Blood Cell (RBC) Count 4.79 mill/uL (4.20-5.40); White Blood Cell (WBC) Count 6.3 thou/uL (4.8-10.8)
[2020-05-29] MEDS: traMADol HCl 50 MG TAB PO PRN (08:20)
[2020-05-29] MEDS: Digoxin 0.125 MG TAB PO SCH (08:21)
[2020-05-29] MEDS: Ferrous Sulfate 325 MG TAB PO SCH (08:22)
[2020-05-29] MEDS: Furosemide 40 MG TAB PO SCH (08:22)
[2020-05-29] MEDS: Saccharomyces boulardii 250 MG CAP PO SCH (08:22)
[2020-05-29] MEDS: Apixaban 2.5 MG TAB PO SCH ×2 (08:22→21:38)
[2020-05-29] MEDS: Potassium Chloride 20 MEQ TAB PO SCH (08:22)
[2020-05-30] MEDS: Cephalexin 250 MG CAP PO SCH ×3 (06:45→17:20)
[2020-05-30] MEDS: Acetaminophen 325 MG TAB PO PRN ×3 (06:45→17:21)
[2020-05-30] MEDS: Potassium Chloride 20 MEQ TAB PO SCH (08:22)
[2020-05-30] MEDS: Furosemide 40 MG TAB PO SCH (08:26)
[2020-05-30] MEDS: Apixaban 2.5 MG TAB PO SCH ×2 (08:26→21:26)
[2020-05-30] MEDS: Ferrous Sulfate 325 MG TAB PO SCH (08:26)
[2020-05-30] MEDS: Digoxin 0.125 MG TAB PO SCH (08:26)
[2020-05-30] MEDS: Saccharomyces boulardii 250 MG CAP PO SCH (08:26)
[2020-05-30] MEDS ORDERED: AcetaZOLAMIDE 250 MG TAB PO SCH (09:00)
[2020-05-30] MEDS ORDERED: Furosemide 40 MG TAB ONE (14:57)
[2020-05-30] MEDS: ACETAZOLAMIDE 250 MG TAB PO SCH (21:26)
[2020-05-31] MEDS: Cephalexin 250 MG CAP PO SCH (00:01)
[2020-05-31] MEDS: traMADol HCl 50 MG TAB PO PRN ×2 (00:02→14:28)
[2020-05-31] MEDS: Furosemide 40 MG TAB PO SCH ×2 (06:26→14:28)
[2020-05-31] MEDS: Digoxin 0.125 MG TAB PO SCH (08:26)
[2020-05-31] MEDS: Saccharomyces boulardii 250 MG CAP PO SCH (08:26)
[2020-05-31] MEDS: Potassium Chloride 20 MEQ TAB PO SCH (08:27)
[2020-05-31] MEDS: Apixaban 2.5 MG TAB PO SCH ×2 (08:27→21:07)
[2020-05-31] MEDS: Ferrous Sulfate 325 MG TAB PO SCH (08:27)
[2020-05-31] MEDS: ACETAZOLAMIDE 250 MG TAB PO SCH ×2 (08:28→21:06)
[2020-05-31] MEDS ORDERED: Furosemide 40 MG/4 ML VIAL SLOW IVP SCH ×2 (16:15→21:00)
[2020-05-31 17:41] VITALS: BMI 35.2
[2020-06-01 05:54] LABS: #Lymphocytes 0.4 thou/uL (1.20-3.40); #Monocytes 0.8 thou/uL (0.11-0.59); %Basophils 0.7 % (0.0-1.0); %Eosinophils 0.4 % (0.0-10.0); %Lymphocytes 5.5 % (21.0-51.0); %Monocytes 10.6 % (0.0-10.0); %Neutrophils 82.9 % (42.0-75.0); Hemoglobin 12.2 g/dL (12.0-16.0); Mean Corpuscular HGB CONC 30.4 g/dL (32.0-36.0); Mean Corpuscular Volume 78.8 fL (78.0-98.0); Mean Platelet Volume 8.2 fL (7.4-10.4); Platelet Count 266 thou/uL (130-400); RBC Distribution Width 19.8 % (11.5-14.5); Red Blood Cell (RBC) Count 5.08 mill/uL (4.20-5.40); White Blood Cell (WBC) Count 7.2 thou/uL (4.8-10.8)
[2020-06-01 06:01] LABS: ALT (SGPT) 18 U/L (8-55); AST (SGOT) 19 U/L (5-34); Albumin 3.6 g/dL (3.4-4.8); Alkaline Phosphatase 88 U/L (40-110); Anion Gap 15 mmol/L (10-20); BUN (Urea Nitrogen) 39 mg/dL (9.8-20.1); Bilirubin, Total 1.5 mg/dL (0.2-1.2); Calc. Creatinine Clearance 58 mL/min (70-130); Calcium 9.2 mg/dL (7.8-10.44); Carbon Dioxide 33 mmol/L (23-31); Chloride 95 mmol/L (98-107); Glucose 110 mg/dL (83-110); Potassium 5.5 mmol/L (3.5-5.1); Protein, Total 5.6 g/dL (5.8-8.1); Sodium 137 mmol/L (136-145)
[2020-06-01 06:36] VITALS: TEMP 97.6
[2020-06-01 06:44] LABS: Anisocytosis SLIGHT = 6-15 cells (100X) (0-5/hpf); Elliptocytes SLIGHT = 2-5 cells (100X) (0-1/hpf); MDiff Complete? YES; Platelet Morphology Comment Appears Adequate; Poikilocytosis SLIGHT = 6-15 cells (100X) (0-5/hpf); Schistocytes MODERATE= 6-15 cells (100X) (0-1/hpf); Stomatocytes SLIGHT = 2-5 cells (100X) (0-1/hpf)
[2020-06-01] MEDS: Apixaban 2.5 MG TAB PO SCH (08:04)
[2020-06-01] MEDS: Ferrous Sulfate 325 MG TAB PO SCH (08:05)
[2020-06-01] MEDS: Saccharomyces boulardii 250 MG CAP PO SCH (08:05)
[2020-06-01] MEDS: Digoxin 0.125 MG TAB PO SCH (08:05)
[2020-06-01] MEDS: ACETAZOLAMIDE 250 MG TAB PO SCH (08:06)
[2020-06-01] MEDS ORDERED: Furosemide 40 MG/4 ML VIAL SLOW IVP SCH (09:00)
[2020-06-01] MEDS: Albuterol 200 PUFF (6.7GM INHALER) INH PRN (10:12)
[2020-06-01] MEDS ORDERED: methylPREDNISolone Sod Succ/PF 125 MG/2 ML VIAL ONE (11:03)
[2020-06-01 11:18] VITALS: BP 125/65
== END 2020-06-01 10:30 | disposition short-term general hospital (02) | DRG 602 ==
LOC: BURMED 19:50
PROVIDERS: ADMIT Family Medicine; ATTEND Family Medicine
DX: L03.115 Cellulitis of right lower limb (principal); I50.33 Acute on chronic diastolic (congestive) heart failure; J96.00 Acute respiratory failure, unspecified whether with hypoxia or hypercapnia; E87.3 Alkalosis; R53.81 Other malaise; I27.20 Pulmonary hypertension, unspecified; E87.6 Hypokalemia; I48.0 Paroxysmal atrial fibrillation; I11.0 Hypertensive heart disease with heart failure; J44.9 Chronic obstructive pulmonary disease, unspecified; R94.5 Abnormal results of liver function studies; D50.9 Iron deficiency anemia, unspecified; Z86.711 Personal history of pulmonary embolism; Z79.01 Long term (current) use of anticoagulants; Z88.1 Allergy status to other antibiotic agents; Z90.49 Acquired absence of other specified parts of digestive tract; Z90.710 Acquired absence of both cervix and uterus
CPT/HCPCS: 36415; 71045; 80053; 83880; 85025; 97602; J1940; J2930; J7620; Q0162

== ENCOUNTER 2020-06-01 10:41 | Emergency (ER) | payer MEDICARE ==
[2020-06-01 10:58] LABS: #Basophils 0.1 thou/uL (0.0-0.2); #Lymphocytes 0.4 thou/uL (1.20-3.40); #Monocytes 0.9 thou/uL (0.11-0.59); #Neutrophils 5.6 thou/uL (1.40-6.50); %Basophils 0.8 % (0.0-1.0); %Eosinophils 0.4 % (0.0-10.0); %Lymphocytes 6.1 % (21.0-51.0); %Monocytes 12.9 % (0.0-10.0); %Neutrophils 79.9 % (42.0-75.0); Hemoglobin 12.1 g/dL (12.0-16.0); Mean Corpuscular HGB CONC 29.6 g/dL (32.0-36.0); Mean Corpuscular Hemoglobin 23.5 pg (27.0-31.0); Mean Corpuscular Volume 79.5 fL (78.0-98.0); Mean Platelet Volume 7.9 fL (7.4-10.4); Platelet Count 264 thou/uL (130-400); RBC Distribution Width 20.3 % (11.5-14.5); Red Blood Cell (RBC) Count 5.15 mill/uL (4.20-5.40)
[2020-06-01 11:03] LABS: INR-International Normal Ratio 1.9; PTT 41.7 sec (22.9-36.1); Prothrombin Time 22.1 sec (12.0-14.7)
[2020-06-01 11:12] LABS: ALT (SGPT) 17 U/L (8-55); AST (SGOT) 17 U/L (5-34); Albumin 3.3 g/dL (3.4-4.8); Alkaline Phosphatase 83 U/L (40-110); Anion Gap 13 mmol/L (10-20); BUN (Urea Nitrogen) 37 mg/dL (9.8-20.1); Bilirubin, Total 1.4 mg/dL (0.2-1.2); Calc. Creatinine Clearance 0 mL/min (70-130); Calcium 8.1 mg/dL (7.8-10.44); Carbon Dioxide 33 mmol/L (23-31); Chloride 99 mmol/L (98-107); Globulin 1.8 g/dL (2.4-3.5); Glucose 108 mg/dL (83-110); Potassium 5.3 mmol/L (3.5-5.1); Protein, Total 5.1 g/dL (5.8-8.1); Sodium 140 mmol/L (136-145)
[2020-06-01 11:21] LABS: Anisocytosis SLIGHT = 6-15 cells (100X) (0-5/hpf); MDiff Complete? YES; Ovalocytes SLIGHT = 2-5 cells (100X) (0-1/hpf); Poikilocytosis SLIGHT = 6-15 cells (100X) (0-5/hpf); Schistocytes SLIGHT = 2-5 cells (100X) (0-1/hpf)
[2020-06-01 11:30] LABS: CKMB 3.4 ng/mL (0-6.6)
[2020-06-01] MEDS ORDERED: methylPREDNISolone Sod Succ/PF 125 MG/2 ML VIAL ONE (12:59)
== END 2020-06-01 12:08 | disposition short-term general hospital (02) ==
LOC: BURERS 10:41
DX: J44.1 Chronic obstructive pulmonary disease with (acute) exacerbation (principal); I11.0 Hypertensive heart disease with heart failure; I50.9 Heart failure, unspecified; E87.5 Hyperkalemia; I49.9 Cardiac arrhythmia, unspecified; I48.91 Unspecified atrial fibrillation
CPT/HCPCS: 71045; 82553; 83880; 84484; 85610; 85730; 93005; 94760; 96374; J2930; J7620

== ENCOUNTER 2020-06-09 15:22 | Inpatient (IN) | payer MEDICARE ==
[2020-06-09] MEDS ORDERED: [UNRECOGNIZED DRUG - REMARK] INH PRN (20:58)
[2020-06-09] MEDS ORDERED: Acetaminophen 325 MG TAB PO PRN (20:58)
[2020-06-09] MEDS ORDERED: Senokot S 8.6-50 MG TAB PO PRN (21:00)
[2020-06-09] MEDS: Apixaban 5 MG TAB PO SCH (22:01)
[2020-06-10] MEDS: Mometasone/Formoterol 200/5 60 PUFF INH SCH ×2 (06:33→18:20)
[2020-06-10 07:29] LABS: Anion Gap 16 mmol/L (10-20); BUN (Urea Nitrogen) 22 mg/dL (9.8-20.1); Calc. Creatinine Clearance 84 mL/min (70-130); Calcium 9.2 mg/dL (7.8-10.44); Carbon Dioxide 37 mmol/L (23-31); Glucose 85 mg/dL (83-110)
[2020-06-10 07:31] LABS: Chloride 88 mmol/L (98-107); Potassium 2.8 mmol/L (3.5-5.1); Sodium 138 mmol/L (136-145)
[2020-06-10] MEDS ORDERED: predniSONE 20 MG TAB PO SCH (08:00)
[2020-06-10] MEDS ORDERED: Potassium Chloride 20 MEQ TAB PO SCH (09:00)
[2020-06-10] MEDS ORDERED: Furosemide 40 MG TAB PO SCH ×2 (09:00)
[2020-06-10] MEDS ORDERED: ACETAZOLAMIDE 250 MG PO SCH (09:00)
[2020-06-10] MEDS: Potassium Chloride 20 MEQ TAB PO SCH ×2 (09:15→17:10)
[2020-06-10] MEDS: Apixaban 5 MG TAB PO SCH ×2 (09:16→21:04)
[2020-06-10] MEDS: predniSONE 10 MG TAB PO SCH (09:17)
[2020-06-11 06:01] LABS: Anion Gap 14 mmol/L (10-20); BUN (Urea Nitrogen) 21 mg/dL (9.8-20.1); Calc. Creatinine Clearance 84 mL/min (70-130); Carbon Dioxide 37 mmol/L (23-31); Glucose 84 mg/dL (83-110)
[2020-06-11 06:05] LABS: Chloride 90 mmol/L (98-107); Potassium 3.4 mmol/L (3.5-5.1); Sodium 139 mmol/L (136-145)
[2020-06-11] MEDS ORDERED: Furosemide 40 MG TAB PO SCH (07:30)
[2020-06-11] MEDS: Potassium Chloride 20 MEQ TAB PO SCH ×2 (08:22→16:47)
[2020-06-11] MEDS: Apixaban 5 MG TAB PO SCH ×2 (08:23→22:04)
[2020-06-11] MEDS: predniSONE 10 MG TAB PO SCH (08:23)
[2020-06-11] MEDS: Mometasone/Formoterol 200/5 60 PUFF INH SCH ×2 (09:34→22:05)
[2020-06-11] MEDS: Acetaminophen 325 MG TAB PO PRN (22:04)
[2020-06-12 05:36] LABS: Anion Gap 14 mmol/L (10-20); BUN (Urea Nitrogen) 25 mg/dL (9.8-20.1); Calc. Creatinine Clearance 73 mL/min (70-130); Calcium 8.8 mg/dL (7.8-10.44); Carbon Dioxide 34 mmol/L (23-31); Chloride 94 mmol/L (98-107); Glucose 105 mg/dL (83-110); Potassium 4.3 mmol/L (3.5-5.1); Sodium 138 mmol/L (136-145)
[2020-06-12] MEDS: predniSONE 10 MG TAB PO SCH (09:28)
[2020-06-12] MEDS: Acetaminophen 325 MG TAB PO PRN (09:28)
[2020-06-12] MEDS: Furosemide 40 MG TAB PO SCH ×2 (09:29→14:01)
[2020-06-12] MEDS: Mometasone/Formoterol 200/5 60 PUFF INH SCH ×2 (09:30→20:35)
[2020-06-12] MEDS: Apixaban 5 MG TAB PO SCH ×2 (11:56→20:34)
[2020-06-12 21:17] VITALS: BMI 31.6
[2020-06-13 05:43] LABS: Anion Gap 16 mmol/L (10-20); BUN (Urea Nitrogen) 28 mg/dL (9.8-20.1); Calc. Creatinine Clearance 72 mL/min (70-130); Carbon Dioxide 33 mmol/L (23-31); Chloride 93 mmol/L (98-107); Glucose 101 mg/dL (83-110); Potassium 4.1 mmol/L (3.5-5.1); Sodium 138 mmol/L (136-145)
[2020-06-13] MEDS ORDERED: niCARdipine 20MG In NaCl 0 MG/0 ML BAG ONE (09:01)
[2020-06-13] MEDS: Acetaminophen 325 MG TAB PO PRN (09:15)
[2020-06-13] MEDS: predniSONE 10 MG TAB PO SCH (09:16)
[2020-06-13] MEDS: Apixaban 5 MG TAB PO SCH ×2 (09:16→21:38)
[2020-06-13] MEDS: Furosemide 40 MG TAB PO SCH ×2 (09:17→14:45)
[2020-06-13] MEDS: Mometasone/Formoterol 200/5 60 PUFF INH SCH ×2 (09:17→21:39)
[2020-06-14 06:06] LABS: Anion Gap 15 mmol/L (10-20); BUN (Urea Nitrogen) 32 mg/dL (9.8-20.1); Calc. Creatinine Clearance 73 mL/min (70-130); Calcium 9.1 mg/dL (7.8-10.44); Carbon Dioxide 35 mmol/L (23-31); Chloride 92 mmol/L (98-107); Glucose 92 mg/dL (83-110); Potassium 4.4 mmol/L (3.5-5.1); Sodium 138 mmol/L (136-145)
[2020-06-14 06:07] VITALS: TEMP 97.6
[2020-06-14] MEDS: Furosemide 40 MG TAB PO SCH (08:42)
[2020-06-14] MEDS: predniSONE 10 MG TAB PO SCH (08:44)
[2020-06-14] MEDS: Apixaban 5 MG TAB PO SCH (08:44)
[2020-06-14] MEDS: Mometasone/Formoterol 200/5 60 PUFF INH SCH (08:47)
[2020-06-14] MEDS: Acetaminophen 325 MG TAB PO PRN (08:51)
[2020-06-14 08:52] VITALS: BP 100/70
[2020-06-14] MEDS ORDERED: niCARdipine 20MG In NaCl 0 MG/0 ML BAG ONE (10:35)
[2020-06-14] MEDS ORDERED: Diltiazem 125 MG/25 ML ONE (10:37)
[2020-07-06] MEDS ORDERED: Cyanocobalamin 1000 MCG/ML VIAL IM SCH (10:45)
== END 2020-06-14 10:30 | disposition short-term general hospital (02) | DRG 947 ==
LOC: BURMED 18:14
PROVIDERS: ADMIT Family Medicine; ATTEND Family Medicine
DX: R53.81 Other malaise (principal); I50.33 Acute on chronic diastolic (congestive) heart failure; J96.21 Acute and chronic respiratory failure with hypoxia; J96.22 Acute and chronic respiratory failure with hypercapnia; E66.2 Morbid (severe) obesity with alveolar hypoventilation; L89.152 Pressure ulcer of sacral region, stage 2; J44.9 Chronic obstructive pulmonary disease, unspecified; I48.0 Paroxysmal atrial fibrillation; G47.33 Obstructive sleep apnea (adult) (pediatric); I27.20 Pulmonary hypertension, unspecified; E87.6 Hypokalemia; I95.9 Hypotension, unspecified; Z88.1 Allergy status to other antibiotic agents; Z90.710 Acquired absence of both cervix and uterus; Z90.49 Acquired absence of other specified parts of digestive tract; Z68.31 Body mass index [BMI] 31.0-31.9, adult
CPT/HCPCS: 36415; 80048; 83880; 94664; 97602; J3370; J7512

== ENCOUNTER 2020-06-14 10:30 | Emergency (ER) | payer MEDICARE ==
[2020-06-14 11:04] LABS: Hemoglobin 14.3 g/dL (12.0-16.0); Mean Corpuscular HGB CONC 30.3 g/dL (32.0-36.0); Mean Corpuscular Hemoglobin 23.7 pg (27.0-31.0); Mean Corpuscular Volume 78.2 fL (78.0-98.0); Mean Platelet Volume 10.7 fL (7.4-10.4); Platelet Count 155 thou/uL (130-400); RBC Distribution Width 19.8 % (11.5-14.5); Red Blood Cell (RBC) Count 6.05 mill/uL (4.20-5.40); White Blood Cell (WBC) Count 15.9 thou/uL (4.8-10.8)
[2020-06-14 11:09] LABS: #Lymphocytes 0.3 thou/uL (1.20-3.40); #Monocytes 0.5 thou/uL (0.11-0.59); #Neutrophils 15.1 thou/uL (1.40-6.50); %Basophils 0.3 % (0.0-1.0); %Eosinophils 0.1 % (0.0-10.0); %Monocytes 2.8 % (0.0-10.0); %Neutrophils 94.9 % (42.0-75.0)
[2020-06-14] MEDS ORDERED: Sodium Chloride 0.9% 100 ML ONE (11:16)
[2020-06-14] MEDS ORDERED: Piperacillin/Tazobactam 4.5 GM VIAL ONE (11:16)
[2020-06-14 11:20] LABS: ALT (SGPT) 16 U/L (8-55); AST (SGOT) 20 U/L (5-34); Albumin 3.5 g/dL (3.4-4.8); Alkaline Phosphatase 85 U/L (40-110); Anion Gap 18 mmol/L (10-20); BUN (Urea Nitrogen) 33 mg/dL (9.8-20.1); Bilirubin, Total 4.3 mg/dL (0.2-1.2); Calc. Creatinine Clearance 0 mL/min (70-130); Calcium 9.4 mg/dL (7.8-10.44); Carbon Dioxide 33 mmol/L (23-31); Chloride 90 mmol/L (98-107); Globulin 2.5 g/dL (2.4-3.5); Glucose 119 mg/dL (83-110); Potassium 4.9 mmol/L (3.5-5.1); Sodium 136 mmol/L (136-145)
[2020-06-14 11:21] LABS: Bilirubin Small (Negative); Blood, Urine Large (Negative); Clarity Clear (Clear); Glucose, Urine (Dipstick) Negative (Negative); Ketone, Urine Negative (Negative); Leukocyte Moderate (Negative); Nitrite Positive (Negative); Protein, Urine (Dipstick) 30 mg/dL (Neg-Trace)
[2020-06-14 11:36] LABS: CKMB 0.8 ng/mL (0-6.6)
[2020-06-14 11:47] LABS: RBC/HPF 21-50 HPF (0-3); Renal Epithelial 0-3 HPF (None Seen); Transitional Epithelial 0-3 HPF (None Seen); WBC/HPF 21-50 HPF (0-3)
[2020-06-14 11:47] LABS: MDiff Complete? YES
[2020-06-14 11:48] LABS: Bacteria/HPF 1+ HPF (None Seen); Yeast-Budding Rare HPF (None Seen)
[2020-06-14] MEDS ORDERED: Furosemide 100 MG/10 ML VIAL ONE (12:48)
[2020-06-14] MEDS ORDERED: Norepinephrine 4 MG/4 ML VIAL ONE (13:03)
== END 2020-06-14 13:37 | disposition short-term general hospital (02) ==
LOC: BURERS 10:30
DX: A41.9 Sepsis, unspecified organism (principal); R65.20 Severe sepsis without septic shock; I50.1 Left ventricular failure, unspecified; I11.0 Hypertensive heart disease with heart failure; I48.91 Unspecified atrial fibrillation; N39.0 Urinary tract infection, site not specified; J44.9 Chronic obstructive pulmonary disease, unspecified
CPT/HCPCS: 71045; 81003; 81015; 82553; 83605; 83880; 84443; 84484; 85025; 85379; 87040; 87077; 87149; 87186; 94760; 96365; 96375; J1940; J2543; J3370; J3490